=== PATIENT | female | born 1950 | race Caucasian/White ===

== ENCOUNTER 2019-07-08 11:09 | Inpatient (IN) | payer OTHER, SELFPAY ==
[2019-07-08 11:01] VITALS: BP 137/87; PULSE 93; RESP 16; TEMP 36.7; O2SAT 95; BMI 22.2
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
--- NOTE | 2019-07-08 15:11 | XR_ITS ---
WS: [id number] PORTABLE CHEST HISTORY: sob COMPARISON: None available. Hyperexpanded lungs with emphysema. No pneumonia. Normal vasculature. No pleural effusion or pneumoth orax. Cardiac size: Mildly enlarged cardiac silhouette. Mediastinum/Aorta: Mild atherosclerosis aorta. No osseous abnormality seen. XR/XR chest 1V portable [id number] IMPRESSION: 1. Mild emphysema and cardiomegaly. 2. Partially calcified aorta.
[2019-07-08 15:37] LABS: Basophils % 0.4 %; Hematocrit 38.8 % (37.0-47.0); Hemoglobin 12.8 g/dL (11.5-15.3); Lymphocytes # 1.7 10^3/uL (0.8-4.8); Lymphocytes % 23.2 %; Mean Corpuscular Hemoglobin 27.8 pg (28.0-34.0); Mean Corpuscular Volume 84.3 fL (81-99); Mean Platelet Volume 11.5 fL (7.4-10.4); Monocytes # 0.6 10^3/uL (0.2-0.9); Monocytes % 7.9 %; Neutrophils % 54.4 %; Nucleated Red Blood Cells % 0 %; Platelet Count 301 10^3/cmm (130-400); Red Cell Distribution Width 13.2 % (12.1-15.1); White Blood Count 7.4 10^3/uL (4.0-10.0)
[2019-07-08 15:55] LABS: Alanine Aminotransferase < 5 U/L (0-33); Alkaline Phosphatase 142 IU/L (35-105); Anion Gap 15.7 (5-19); Aspartate Amino Transferase 19 U/L (0-32); Blood Urea Nitrogen 34 mg/dL (8-23); Calcium 10.2 mg/Dl (8.8-10.2); Carbon Dioxide 25 mmol/L (22-29); Chloride 102 mmol/L (98-107); Globulin 3.1 g/dL (1.3-4.6); Glomerular Filtration Rate 99.4 mL/min (90-130); Glucose 101 mg/dL (74-106); Potassium 3.7 mmol/L (3.5-5.1); Sodium 139 mmol/L (136-145); Total Bilirubin 0.2 mg/dL (0.15-1.2); Total Protein 7.1 g/dL (6.6-8.7)
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
[2019-07-08 17:08] VITALS: BP 99/68; PULSE 107; RESP 16; O2SAT 96
[2019-07-08 18:51] VITALS: BP 111/81; PULSE 91; RESP 19; O2SAT 96
[2019-07-08] MEDS: sodium chloride 0.9% 1,000 ML 999 ML IV (19:08)
[2019-07-08 19:17] VITALS: BP 114/72; PULSE 91; RESP 20; TEMP 37; O2SAT 96
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
--- NOTE | 2019-07-08 19:40 | ED_ITS ---
HPI - General Adult General: Chief complaint: General Medical, Adult Stated complaint: does not feel safe at home Time Seen by Provider: 07/08/19 11:11 PFSH ED PFSH: Statuses (acute, chronic, etc) shown below reflect problem list status as previously entered and may not be historically accurate Medical History (Updated 07/08/19 @ 17:45 by Jael Dove MD, [facility]) Parkinson disease (Acute) Rheumatoid arthritis (Acute) Social History Smoking and tobacco status: never smoked Course Vital Signs: Vital signs: Vital Signs Temperature 98.6 F 07/08/19 19:17 Pulse Rate 91 07/08/19 19:17 Respiratory Rate 20 H 07/08/19 19:17 Blood Pressure 114/72 07/08/19 19:17 Pulse Oximetry 96 07/08/19 19:17 MDM - General Adult Lab Data: Labs: Lab Results 07/08/19 07/08/19 Range/Units 15:31 15:31 WBC 7.4 (4.0-10.0) 10^3/ uL RBC 4.60 (4.1-5.3) 10^6/u L Hgb 12.8 (11.5-15.3) g/dL Hct 38.8 (37.0-47.0) % MCV 84.3 (81-99) fL MCH 27.8 L (28.0-34.0) pg MCHC 33.0 (30.0-36.0) g/dL RDW 13.2 (12.1-15.1) % Plt Count 301 (130-400) 10^3/c mm MPV 11.5 H (7.4-10.4) fL Neut % (Auto) 54.4 % Lymph % (Auto) 23.2 % [place] % (Auto) 7.9 % Eos % (Auto) 14.0 % Baso % (Auto) 0.4 % Neut # (Auto) 4.0 (1.8-7.7) 10^3/u L Lymph # (Auto) 1.7 (0.8-4.8) 10^3/u L [place] # (Auto) 0.6 (0.2-0.9) 10^3/u L Eos # (Auto) 1.0 H (0.0-0.8) 10^3/u L Baso # (Auto) 0.0 (0.0-0.1) 10^3/u L Nucleated RBC % (a uto) 0 % Nucleated RBCs # 0.0 /100WBC Sodium 139 (136-145) mmol/L Potassium 3.7 (3.5-5.1) mmol/L Chloride 102 (98-107) mmol/L Carbon Dioxide 25 (22-29) mmol/L Anion Gap 15.7 (5-19) BUN 34 H (8-23) mg/dL Creatinine 0.6 (0.5-0.9) mg/dL GFR Calculation 99.4 (90-130) mL/min Glucose 101 (74-106) mg/dL Calcium 10.2 (8.8-10.2) mg/Dl Total Bilirubin 0.2 (0.15-1.2) mg/dL AST 19 (0-32) U/L ALT < 5 (0-33) U/L Alkaline Phosphata se 142 H (35-105) IU/L Total Protein 7.1 (6.6-8.7) g/dL Albumin 4.0 (3.5-5.2) g/dL Globulin 3.1 (1.3-4.6) g/dL Discharge Plan Discharge Patient Disposition: Placed in Observation Admit Provider: Zach Curtis Clinical Impression: Acute dehydration Condition: Stable Referrals: Keagan Chris [Family Provider] - Discharge Diet: Usual diet Discharge Activity: Resume usual activity Discharge Date/Time: 07/08/19 19:36 Coding Level of Care Code ED Pugger Helper for Salud Pickering
[2019-07-08 20:10] VITALS: BP 128/89; PULSE 100; RESP 20; TEMP 36.8; O2SAT 96
[2019-07-08 20:26] VITALS: BP 128/89; PULSE 100; RESP 20; TEMP 37; O2SAT 96
[2019-07-08] MEDS: enoxaparin 40 mg/0.4 mL Syringe SUBCUT (21:41)
[2019-07-08] MEDS: carbidopa-levodopa 25-100mg Tablet 1 EACH PO (21:41)
[2019-07-08] MEDS: sodium chloride 0.9% 1,000 ML 100 ML IV (21:42)
[2019-07-09] VITALS (14 sets, daily range): BP systolic 105–124; BP diastolic 65–78; PULSE 78–93; RESP 16–24; TEMP 36.4–36.7; O2SAT 93–98; BMI 22.7
[2019-07-09 05:54] LABS: Basophils % 0.7 %; Hematocrit 33.5 % (37.0-47.0); Hemoglobin 11.1 g/dL (11.5-15.3); Lymphocytes # 1.5 10^3/uL (0.8-4.8); Lymphocytes % 24.1 %; Mean Corpuscular HGB Conc 33.1 g/dL (30.0-36.0); Mean Corpuscular Hemoglobin 29.4 pg (28.0-34.0); Mean Corpuscular Volume 88.6 fL (81-99); Mean Platelet Volume 12.2 fL (7.4-10.4); Monocytes # 0.6 10^3/uL (0.2-0.9); Monocytes % 9.3 %; Neutrophils % 48.7 %; Nucleated Red Blood Cells % 0 %; Platelet Count 233 10^3/cmm (130-400); Red Blood Count 3.78 10^6/uL (4.1-5.3); Red Cell Distribution Width 13.5 % (12.1-15.1); White Blood Count 6.1 10^3/uL (4.0-10.0)
[2019-07-09] MEDS: buPROPion XL (24 HR) 300 mg Tablet PO (06:14)
[2019-07-09] MEDS: sodium chloride 0.9% 1,000 ML 100 ML IV (06:15)
[2019-07-09 06:21] LABS: Anion Gap 14.2 (5-19); Blood Urea Nitrogen 31 mg/dL (8-23); Calcium 8.7 mg/Dl (8.8-10.2); Carbon Dioxide 23 mmol/L (22-29); Chloride 106 mmol/L (98-107); Glomerular Filtration Rate 99.4 mL/min (90-130); Glucose 85 mg/dL (74-106); Potassium 3.2 mmol/L (3.5-5.1); Sodium 140 mmol/L (136-145)
[2019-07-09 08:17] LABS: Bilirubin Urine 1+ (NEGATIVE); Blood Urine Neg (Negative); Glucose Urine UA Norm (Normal); Ketones Urine 1+ (Negative); Leukocyte Esterase Urine Negative (Negative); Nitrate Urine Negative (Negative); Protein Urine Neg (Negative); Urine Appearance Clear (CLEAR); Urine Color Yellow (Yellow); Urobilinogen Urine Norm (Negative); pH Urine 5 (5-7)
[2019-07-09 08:19] LABS: Mucus Urine 1+
[2019-07-09 08:20] LABS: Add Urine Culture? No; Bacteria Urine 1+; RBC Urine 0-4 /hpf (0-2)
[2019-07-09] MEDS: calcium carbonate 500 mg Chew Tablet 1000 MG PO (10:01)
[2019-07-09] MEDS: montelukast sodium 10 mg Tablet PO (10:02)
[2019-07-09] MEDS: atorvastatin 40 mg Tablet 20 MG PO (10:02)
[2019-07-09] MEDS: pantoprazole DR 40 mg Tablet PO (10:02)
[2019-07-09] MEDS: citalopram 20 mg Tablet 40 MG PO (10:03)
[2019-07-09] MEDS: hydroCHLOROthiazide 25 mg Tablet PO (10:03)
[2019-07-09] MEDS: carbidopa-levodopa 25-100mg Tablet 1 EACH PO (10:04)
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
--- NOTE | 2019-07-09 17:30 | PC.NURSE ---
DISCHARGE SUMMARY PATIENTS DISCHARGE INSTRUCTIONS WERE GIVEN TO RECEIVING NURSE. PATIENT WAS TRANSFERRED TO SNF BY MEDICAL TRANSPORT. IV WAS DISCONTINUED. VITAL SIGNS STABLE AND PATIENT WAS ALERT AND ORIENTED.
== END 2019-07-09 17:15 | disposition skilled nursing facility (03) | DRG 641 ==
LOC: ER 17:45 → MEDSURG 19:06
PROVIDERS: Admitting Provider Family Medicine; Emergency Provider Family Medicine; Family Provider Family Medicine; Visit Provider Family Medicine
DX: E86.0 Dehydration (principal); E46 Unspecified protein-calorie malnutrition; Z68.22 Body mass index [BMI] 22.0-22.9, adult; E78.5 Hyperlipidemia, unspecified; T74.31XA Adult psychological abuse, confirmed, initial encounter; Y07.59 Other non-family member, perpetrator of maltreatment and neglect; G20 Parkinson's disease; I10 Essential (primary) hypertension; E55.9 Vitamin D deficiency, unspecified; J45.909 Unspecified asthma, uncomplicated; K21.9 Gastro-esophageal reflux disease without esophagitis; M06.9 Rheumatoid arthritis, unspecified; R19.7 Diarrhea, unspecified; R53.81 Other malaise
CPT/HCPCS: 36415; 71045; 80048; 80053; 81001; 85025; 94640; 96372; 97161; 97165; 97530; 99282; J1650; J3535; J7030

== ENCOUNTER 2019-07-13 10:05 | Outpatient (RCR) | payer OTHER, MEDICARE, SELFPAY | END 2019-08-05 23:59 | disposition home or self-care (01) | LOC: LAB 10:05 | PROVIDERS: Family Provider Family Medicine; Visit Provider Family Medicine | DX: E43 Unspecified severe protein-calorie malnutrition (principal); E55.9 Vitamin D deficiency, unspecified; E78.5 Hyperlipidemia, unspecified; I10 Essential (primary) hypertension; E87.6 Hypokalemia ==

== ENCOUNTER 2019-10-26 18:05 | Emergency (ER) | payer OTHER, MEDICARE, SELFPAY ==
[2019-10-26 18:09] VITALS: BP 130/79; PULSE 91; RESP 17; TEMP 36.7; O2SAT 95; BMI 22.2
--- NOTE | 2019-10-26 18:12 | XR_ITS ---
WS: [id number] CHEST XRAY TECHNIQUE: Portable chest. CLINICAL INFORMATION: psych COMPARISON: July 08, 2019 FINDINGS: Heart: Cardiomegaly. Aortic calcification. Consider pericardial effusion. Lungs: Moderate chronic emphysematous changes. Probable small left pleural effusion. No focal pneumon ia. Bones: Thoracic scoliosis. XR/XR chest 1V portable [id number] IMPRESSION: 1. Cardiomegaly. Consider pericardial effusion. 2. Probable small left pleural effusion. 3. No focal pneumonia.
--- NOTE | 2019-10-26 18:18 | ED_ITS ---
HPI - Psych General: Chief Complaint: Psychiatric Symptoms Stated Complaint: SI Time Seen by Provider: 10/26/19 18:12 Source: patient and EMS Mode of arrival: EMS Limitations: no limitations History of Present Illness: HPI Narrative: 69-year-old female here from snf in [place]. She states she has been depressed with quarantine and not having any visitors due to the coronavirus. She states she had suicidal thoughts earlier with no plans. She states that she no longer has any of these thoughts and is not wanting to kill herself. She is never tried to kill her self in the past. Associated symptoms: Reports depression Review of Systems Const: Denies: fever, chills, body aches or change in appetite Eyes: Denies: blurry vision or eye discomfort ENMT: Denies: throat pain or dental pain Card: Denies: chest pain Resp: Denies: shortness of breath GI: Denies: abdominal pain, nausea, vomiting or diarrhea : Denies: painful urination Musc: Denies: neck pain or back pain Skin/Breast: Denies: rash Neuro: Denies: headache Psych: Reports: depression Andriy/Lymph: Denies: easy bruising All/Imm: Denies: hives PFSH ED PFSH: Medical History Ankle fracture, left Hypertension Parkinson disease Rheumatoid arthritis Surgical History No significant past surgical history Family History Denies family history of Diabetes CAD (coronary artery disease) Cancer Social History Smoking and tobacco status: never smoked Alcohol intake: never Physical Exam Const: COMMON NORMALS: no apparent distress, oriented x3 and healthy appearing HENMT: COMMON NORMALS: normocephalic and head/scalp atraumatic HEAD & SCALP: normocephalic and atraumatic Eye: COMMON NORMALS: PERRL and EOMs intact bilaterally PUPIL: Yes PERRL Neck/C-Spine: COMMON NORMALS: full ROM and supple Chest: COMMONS NORMALS: inspection of chest normal and palpation of chest normal Resp: COMMON NORMALS: normal respiratory effort, no retractions, no use of accessory muscles and clear to auscultation bilaterally AUSCULTATION: clear to auscultation bilaterally Cardio: COMMON NORMALS: regular rate, regular rhythm and no murmurs RATE: regular rate RHYTHM: regular rhythm GI: COMMON NORMALS: normal to inspection, nondistended, normoactive bowel sounds, soft to palpation, non-tender and no masses PALPATION: Yes soft Extremity: COMMON NORMALS: normal to inspection and full ROM Neuro: COMMON NORMALS: oriented x3, moves all extremities and no focal motor deficits Psych: COMMON NORMALS: mental status grossly normal, thought process normal and cooperative THOUGHT PROCESS: normal thought process Skin: COMMON NORMALS: no rashes or lesions noted and no wounds GENERAL SKIN EXAM: no rashes or lesions noted MDM - Psych MDM Narrative: Medical decision making narrative: Patient presents here with depression. Patient refused any did suicidal ideations here. I had Dr. Matthew of psychiatry come down and evaluate patient and he spoke to her in person. He agrees she is not a threat to harm herself and feels that she is stable for discharge back to the snf. Patient's labs are all normal and will discharge her back to [facility]. Lab Data: Labs: Lab Results 10/26/19 10/26/19 10/26/19 Range/Units 18:20 18:20 18:35 WBC 6.6 (4.0-10.0) 10^3/ uL RBC 4.25 (4.1-5.3) 10^6/u L Hgb 10.6 L (11.5-15.3) g/dL Hct 33.3 L (37.0-47.0) % MCV 78.4 L (81-99) fL MCH 24.9 L (28.0-34.0) pg MCHC 31.8 (30.0-36.0) g/dL RDW 15.9 H (12.1-15.1) % Plt Count 289 (130-400) 10^3/c mm MPV 12.2 H (7.4-10.4) fL Neut % (Auto) 57.0 % Lymph % (Auto) 23.3 % [place] % (Auto) 10.4 % Eos % (Auto) 8.3 % Baso % (Auto) 0.8 % Neut # (Auto) 3.8 (1.8-7.7) 10^3/u L Lymph # (Auto) 1.5 (0.8-4.8) 10^3/u L [place] # (Auto) 0.7 (0.2-0.9) 10^3/u L Eos # (Auto) 0.6 (0.0-0.8) 10^3/u L Baso # (Auto) 0.1 (0.0-0.1) 10^3/u L Nucleated RBC % (a uto) 0 % Nucleated RBCs # 0.0 /100WBC Sodium 138 (136-145) mmol/L Potassium 3.7 (3.5-5.1) mmol/L Chloride 103 (98-107) mmol/L Carbon Dioxide 26 (22-29) mmol/L Anion Gap 12.7 (5-19) BUN 25 H (8-23) mg/dL Creatinine 0.7 (0.5-0.9) mg/dL GFR Calculation 83.2 L (90-130) mL/min Glucose 111 (65-115) mg/dL Calculated Osmolal ity 284 L (285-295) mOsm/k g Calcium 8.6 (8.5-10.5) mg/dL Total Bilirubin 0.2 (0.15-1.2) mg/dL AST 13 (0-32) U/L ALT < 5 (0-33) U/L Alkaline Phosphata se 75 (35-105) IU/L Total Protein 5.8 L (6.6-8.7) g/dL Albumin 3.5 (3.5-5.2) g/dL Globulin 2.3 (1.3-4.6) g/dL Urine Color Yellow (Yellow) Urine Appearance Clear (CLEAR) Urine pH 6.5 (5-7) Ur Specific Gravit y 1.015 (1.005-1.030) Urine Protein Neg (Negative) Urine Glucose (UA) Norm (Normal) Urine Ketones Negative (Negative) Urine Blood Neg (Negative) Urine Nitrate Negative (Negative) Urine Bilirubin Neg (NEGATIVE) Urine Urobilinogen Norm (Negative) mg/dL Ur Leukocyte Karly ase Negative (Negative) Salicylates 0.6 L (3-10) mg/dL Urine Opiates Scre en (Negative) ng/mL Acetaminophen < 5.0 L (10-30) ug/mL Ur Barbiturates Sc reen (Negative) ng/mL Ur Phencyclidine S crn (Negative) ng/mL Ur Amphetamines Sc reen (Negative) ng/mL U Benzodiazepines Scrn (Negative) ng/mL Urine Cocaine Scre en (Negative) ng/mL U Marijuana (THC) Screen (Negative) ng/mL Ethyl Alcohol < 10 (0-10) mg/dL 10/26/19 Range/Units 18:35 WBC (4.0-10.0) 10^3/ uL RBC (4.1-5.3) 10^6/u L Hgb (11.5-15.3) g/dL Hct (37.0-47.0) % MCV (81-99) fL MCH (28.0-34.0) pg MCHC (30.0-36.0) g/dL RDW (12.1-15.1) % Plt Count (130-400) 10^3/c mm MPV (7.4-10.4) fL Neut % (Auto) % Lymph % (Auto) % [place] % (Auto) % Eos % (Auto) % Baso % (Auto) % Neut # (Auto) (1.8-7.7) 10^3/u L Lymph # (Auto) (0.8-4.8) 10^3/u L [place] # (Auto) (0.2-0.9) 10^3/u L Eos # (Auto) (0.0-0.8) 10^3/u L Baso # (Auto) (0.0-0.1) 10^3/u L Nucleated RBC % (a uto) % Nucleated RBCs # /100WBC Sodium (136-145) mmol/L Potassium (3.5-5.1) mmol/L Chloride (98-107) mmol/L Carbon Dioxide (22-29) mmol/L Anion Gap (5-19) BUN (8-23) mg/dL Creatinine (0.5-0.9) mg/dL GFR Calculation (90-130) mL/min Glucose (65-115) mg/dL Calculated Osmolal ity (285-295) mOsm/k g Calcium (8.5-10.5) mg/dL Total Bilirubin (0.15-1.2) mg/dL AST (0-32) U/L ALT (0-33) U/L Alkaline Phosphata se (35-105) IU/L Total Protein (6.6-8.7) g/dL Albumin (3.5-5.2) g/dL Globulin (1.3-4.6) g/dL Urine Color (Yellow) Urine Appearance (CLEAR) Urine pH (5-7) Ur Specific Gravit y (1.005-1.030) Urine Protein (Negative) Urine Glucose (UA) (Normal) Urine Ketones (Negative) Urine Blood (Negative) Urine Nitrate (Negative) Urine Bilirubin (NEGATIVE) Urine Urobilinogen (Negative) mg/dL Ur Leukocyte Karly ase (Negative) Salicylates (3-10) mg/dL Urine Opiates Scre en Negative (Negative) ng/mL Acetaminophen (10-30) ug/mL Ur Barbiturates Sc reen Negative (Negative) ng/mL Ur Phencyclidine S crn Negative (Negative) ng/mL Ur Amphetamines Sc reen Negative (Negative) ng/mL U Benzodiazepines Scrn Negative (Negative) ng/mL Urine Cocaine Scre en Negative (Negative) ng/mL U Marijuana (THC) Screen Negative (Negative) ng/mL Ethyl Alcohol (0-10) mg/dL Imaging Data^: CXR: Attestation: I personally reviewed and interpreted this imaging study as follows: My impression: no acute abnormality Discharge Plan Discharge Patient Disposition: Home, Self-Care Clinical Impression: Depression Qualifiers: Depression Type: unspecified Qualified Code(s): F32.9 - Major depressive disorder, single episode, unspecified Condition: Stable Prescriptions: No Action citalopram [Celexa] 40 mg Tablet 20 mg PO DAILY RF: 0 acetaminophen [Tylenol Arthritis Pain] 650 mg Tablet Extended Release 650 mg PO DAILY PRN (Reason: Pain) RF: 0 montelukast [Singulair] 10 mg Tablet 10 mg PO DAILY RF: 0 carbidopa-levodopa 25-100 mg Tablet 1 tab PO BID RF: 0 cholecalciferol (vitamin D3) [Vitamin D3] 1,000 unit Capsule 1,000 unit PO DAILY RF: 0 bupropion HCl 300 mg Tablet Extended Release 24 Hr 300 mg PO DAILY RF: 0 Combivent Respimat 20-100 mcg/actuation Mist 1 puff INHALATION QID RF: 0 Robaxin-750 500 mg PO BID PRN (Reason: Spasms) RF: 0 pantoprazole [Protonix] 20 mg Tablet,Delayed Release (Dr/Ec) 20 mg PO DAILY RF: 0 ondansetron HCl 4 mg tablet 4 mg PO Q4H PRN (Reason: NAUSEA/VOMITING) RF: 0 alendronate 70 mg Tablet 70 mg PO Q7D RF: 0 Metamucil 3.4 gram/5.4 gram Powder 1 tsp PO BID RF: 0 Discharge Orders: Discharge Order (Routine); Ordered 10/26/19 Ordered By: Hawa Duckworth Referrals: Keagan Chris [Primary Care Provider] - 1-3 days Discharge Diet: Advance as tolerated Discharge Activity: Resume usual activity Patient Instructions: Depression (ED) Coding Level of Care Code ED Spool Cleaner Hand for Salud Fwd Exam Comprehensive
[2019-10-26 18:19] VITALS: PULSE 102; RESP 18; O2SAT 97
[2019-10-26 18:39] LABS: Basophils # 0.1 10^3/uL (0.0-0.1); Basophils % 0.8 %; Eosinophils # 0.6 10^3/uL (0.0-0.8); Eosinophils % 8.3 %; Hematocrit 33.3 % (37.0-47.0); Hemoglobin 10.6 g/dL (11.5-15.3); Lymphocytes # 1.5 10^3/uL (0.8-4.8); Lymphocytes % 23.3 %; Mean Corpuscular HGB Conc 31.8 g/dL (30.0-36.0); Mean Corpuscular Hemoglobin 24.9 pg (28.0-34.0); Mean Corpuscular Volume 78.4 fL (81-99); Mean Platelet Volume 12.2 fL (7.4-10.4); Monocytes # 0.7 10^3/uL (0.2-0.9); Monocytes % 10.4 %; Neutrophils # 3.8 10^3/uL (1.8-7.7); Nucleated Red Blood Cells % 0 %; Platelet Count 289 10^3/cmm (130-400); Red Blood Count 4.25 10^6/uL (4.1-5.3); Red Cell Distribution Width 15.9 % (12.1-15.1); White Blood Count 6.6 10^3/uL (4.0-10.0)
[2019-10-26 18:46] LABS: Add Urine Microscopic? NO
[2019-10-26 18:58] LABS: Bilirubin Urine Neg (NEGATIVE); Blood Urine Neg (Negative); Glucose Urine UA Norm (Normal); Ketones Urine Negative (Negative); Leukocyte Esterase Urine Negative (Negative); Nitrate Urine Negative (Negative); Protein Urine Neg (Negative); Specific Gravity, Urine 1.015 (1.005-1.030); Urine Appearance Clear (CLEAR); Urine Color Yellow (Yellow); Urobilinogen Urine Norm (Negative); pH Urine 6.5 (5-7)
[2019-10-26 18:59] LABS: Amphetamines Screen Urine Negative (Negative); Barbiturates Screen Urine Negative (Negative); Benzodiazepines Screen Urine Negative (Negative); Cocaine Screen Urine Negative (Negative); Opiate Screen Urine Negative (Negative); PCP Screen Urine Negative (Negative); THC Screen Urine Negative (Negative)
[2019-10-26 18:59] LABS: Alanine Aminotransferase < 5 U/L (0-33); Albumin Level 3.5 g/dL (3.5-5.2); Alkaline Phosphatase 75 IU/L (35-105); Anion Gap 12.7 (5-19); Aspartate Amino Transferase 13 U/L (0-32); Blood Urea Nitrogen 25 mg/dL (8-23); Calcium 8.6 mg/dL (8.5-10.5); Carbon Dioxide 26 mmol/L (22-29); Chloride 103 mmol/L (98-107); Globulin 2.3 g/dL (1.3-4.6); Glomerular Filtration Rate 83.2 mL/min (90-130); Glucose 111 mg/dL (65-115); Osmolality Calculated 284 mOsm/kg (285-295); Potassium 3.7 mmol/L (3.5-5.1); Salicylate 0.6 mg/dL (3-10); Sodium 138 mmol/L (136-145); Total Bilirubin 0.2 mg/dL (0.15-1.2); Total Protein 5.8 g/dL (6.6-8.7)
[2019-10-26 19:03] LABS: Acetaminophen < 5.0 ug/mL (10-30); Alcohol Level < 10 mg/dL (0-10)
--- NOTE | 2019-10-26 19:09 | PC.NURSE ---
REPORT RECEIVED FROM MARISOL TURNER AND CARE TRANSFERRED TO MARISOL ACHARYA
--- NOTE | 2019-10-26 19:10 | PC.NURSE ---
HCP IN ROOM
[2019-10-26 19:16] VITALS: BP 123/75; PULSE 104; O2SAT 97
[2019-10-26 19:59] VITALS: BP 126/63; PULSE 87; RESP 16; O2SAT 96
[2019-10-26 20:19] VITALS: BP 121/63; RESP 16
== END 2019-10-26 20:37 | disposition home or self-care (01) ==
PROVIDERS: Emergency Provider Emergency Medicine; Family Provider Family Medicine; PCP Family Medicine
DX: F32.9 Major depressive disorder, single episode, unspecified (principal); I10 Essential (primary) hypertension; G20 Parkinson's disease; M06.9 Rheumatoid arthritis, unspecified; Z79.899 Other long term (current) drug therapy
CPT/HCPCS: 12345; 36415; 71045; 80053; 80306; 80307; 81003; 85025; 99284

== ENCOUNTER 2020-08-13 14:53 | Observation (INO) | payer OTHER, MEDICARE, SELFPAY ==
[2020-08-13] VITALS (12 sets, daily range): BP systolic 94–136; BP diastolic 54–90; PULSE 100–116; RESP 16–122; TEMP 36.5–36.6; O2SAT 93–98; BMI 16.9
--- NOTE | 2020-08-13 15:07 | W.ED.GIBLEED ---
HPI - GI Bleed General: Chief complaint: GI Bleed Stated complaint: GI BLEED Time Seen by Provider: 08/13/20 14:54 Source: patient and EMS Mode of arrival: EMS Limitations: no limitations History of Present Illness: HPI Narrative: 70-year-old female who is here from [facility]. Patient has had off-and-on bloody sinuses for a month. Today she had one episode of coffee-ground emesis and they were concerned. She said no blood in her stools. She denies any vomiting over the last hour denies any abdominal pain. Patient's blood pressure here is normal. She denies any worsening improving factors. Associated symptoms: Reports vomiting; Denies abdominal pain, chills, easy bruising, fever(s), headache(s), nausea or rash Review of Systems Const: Denies: fever(s), chills, body aches or change in appetite Eyes: Denies: blurry vision or eye discomfort ENMT: Denies: throat pain or dental pain Card: Denies: chest pain Resp: Denies: dyspnea GI: Reports: vomiting; Denies: abdominal pain, nausea or diarrhea : Denies: dysuria Musc: Denies: neck pain or back pain Skin/Breast: Denies: rash Neuro: Denies: headache(s) Psych: Denies: depression Andriy/Lymph: Denies: easy bruising All/Imm: Denies: urticaria PFSH ED PFSH: Medical History (Updated 08/13/20 @ 16:51 by Hawa Duckworth MD) Ankle fracture, left Hypertension Parkinson disease Rheumatoid arthritis Surgical History No significant past surgical history Family History Denies family history of Diabetes CAD (coronary artery disease) Cancer Social History Smoking and tobacco status: never smoked Alcohol intake: never Physical Exam Const: COMMON NORMALS: no acute distress, patient oriented x3 and healthy appearing HENMT: COMMON NORMALS: normocephalic and atraumatic HEAD & SCALP: normocephalic and atraumatic Eye: COMMON NORMALS: Equal, round and reactive pupils present and EOMs intact bilaterally PUPIL: Yes Equal, round and reactive pupils present Neck/C-Spine: COMMON NORMALS: full ROM and supple Chest: COMMONS NORMALS: normal inspection of the chest and normal palpation of entire chest wall Resp: COMMON NORMALS: normal respiratory effort, No retractions, No use of accessory muscles and clear to auscultation bilaterally AUSCULTATION: clear to auscultation bilaterally Cardio: COMMON NORMALS: regular rate, regular rhythm and No murmurs present (Cardio) RATE: regular rate RHYTHM: regular rhythm GI: COMMON NORMALS: Normal to inspection, nondistended, normoactive bowel sounds present, Soft to palpation, non-tender and no masses PALPATION: Yes Soft to palpation RECTAL EXAM: normal sphincter tone and heme negative stool Extremity: COMMON NORMALS: normal to inspection and full ROM Neuro: COMMON NORMALS: patient oriented x3, moves all extremities and no focal motor deficits Psych: COMMON NORMALS: mental status grossly normal, Normal thought process present and cooperative THOUGHT PROCESS: Normal thought process present Skin: COMMON NORMALS: no rashes or lesions noted and no wounds GENERAL SKIN EXAM: no rashes or lesions noted Course Vital Signs: Vital signs: Vital Signs Temperature 97.7 F 08/13/20 14:57 Pulse Rate 107 H 08/13/20 16:20 Respiratory Rate 17 08/13/20 16:20 Blood Pressure 118/85 08/13/20 16:20 Pulse Oximetry 95 08/13/20 16:20 MDM - GI Bleed MDM Narrative: Medical decision making narrative: Patient presents here with vomiting blood this been going on for over a month. She is well-appearing here and rectal exam showed no blood in her stool and her hemoglobin is stable. Patient is requesting discharge I feel she is stable for discharge back to custodial. She is to continue Protonix and Zofran and she is to follow-up with surgery outpatient. She is return if she has any worsening of her hematemesis. Lab Data: Labs: Lab Results 08/13/20 08/13/20 08/13/20 Range/Units 15:37 15:37 15:37 WBC 11.4 H (4.0-10.0) 10^3/ uL RBC 4.61 (4.1-5.3) 10^6/u L Hgb 10.7 L (11.5-15.3) g/dL Hct 34.9 L (37.0-47.0) % MCV 75.7 L (81-99) fL MCH 23.2 L (28.0-34.0) pg MCHC 30.7 (30.0-36.0) g/dL RDW 16.4 H (12.1-15.1) % Plt Count 528 H (130-400) 10^3/c mm MPV 10.7 H (7.4-10.4) fL Neut % (Auto) 80.2 % Lymph % (Auto) 9.9 % [place] % (Auto) 7.5 % Eos % (Auto) 1.8 % Baso % (Auto) 0.4 % Neut # (Auto) 9.17 H (1.8-7.7) 10^3/u L Lymph # (Auto) 1.1 (0.8-4.8) 10^3/u L [place] # (Auto) 0.9 (0.2-0.9) 10^3/u L Eos # (Auto) 0.2 (0.0-0.8) 10^3/u L Baso # (Auto) 0.1 (0.0-0.1) 10^3/u L Nucleated RBC % (a uto) 0 % Nucleated RBCs # 0.0 /100WBC PT 15.20 H (12.1-14.9) SECO NDS INR 1.16 (0.8-1.2) Sodium Cancelled Potassium Cancelled Chloride Cancelled Carbon Dioxide Cancelled Anion Gap Cancelled BUN Cancelled Creatinine Cancelled GFR Calculation Cancelled Glucose Cancelled Calculated Osmolal ity Cancelled Calcium Cancelled Total Bilirubin Cancelled AST Cancelled ALT Cancelled Alkaline Phosphata se Cancelled Total Protein Cancelled Albumin Cancelled Globulin Cancelled 08/13/20 Range/Units 16:00 WBC (4.0-10.0) 10^3/ uL RBC (4.1-5.3) 10^6/u L Hgb (11.5-15.3) g/dL Hct (37.0-47.0) % MCV (81-99) fL MCH (28.0-34.0) pg MCHC (30.0-36.0) g/dL RDW (12.1-15.1) % Plt Count (130-400) 10^3/c mm MPV (7.4-10.4) fL Neut % (Auto) % Lymph % (Auto) % [place] % (Auto) % Eos % (Auto) % Baso % (Auto) % Neut # (Auto) (1.8-7.7) 10^3/u L Lymph # (Auto) (0.8-4.8) 10^3/u L [place] # (Auto) (0.2-0.9) 10^3/u L Eos # (Auto) (0.0-0.8) 10^3/u L Baso # (Auto) (0.0-0.1) 10^3/u L Nucleated RBC % (a uto) % Nucleated RBCs # /100WBC PT (12.1-14.9) SECO NDS INR (0.8-1.2) Sodium 138 Potassium 3.4 L Chloride 108 H Carbon Dioxide 22 Anion Gap 11.4 BUN 33 H Creatinine 0.6 GFR Calculation 99.1 Glucose 132 H Calculated Osmolal ity 295 Calcium 7.3 L Total Bilirubin 0.2 AST 8 ALT < 5 Alkaline Phosphata se 51 Total Protein 5.0 L Albumin 2.8 L Globulin 2.2 Discharge Plan Discharge Patient Disposition: Home Clinical Impression: Hematemesis Qualifiers: Nausea presence: with nausea Qualified Code(s): K92.0 - Hematemesis Condition: Stable Prescriptions: New ondansetron 4 mg tablet,disintegrating 4 mg PO Q6H PRN (Reason: nausea and vomiting) Qty: 14 RF: 0 No Action citalopram [Celexa] 40 mg Tablet 20 mg PO DAILY@0800 RF: 0 acetaminophen [Tylenol Arthritis Pain] 650 mg Tablet Extended Release 650 mg PO DAILY PRN (Reason: Pain) RF: 0 montelukast [Singulair] 10 mg Tablet 10 mg PO DAILY@1999 RF: 0 carbidopa-levodopa 25-100 mg Tablet 1 tab PO BID@ RF: 0 cholecalciferol (vitamin D3) [Vitamin D3] 1,000 unit Capsule 1,000 unit PO DAILY@08 RF: 0 Combivent Respimat 20-100 mcg/actuation Mist 1 puff INHALATION QID RF: 0 Robaxin-750 500 mg PO BID@ RF: 0 ondansetron HCl 4 mg tablet 4 mg PO Q4H PRN (Reason: NAUSEA/VOMITING) RF: 0 alendronate 70 mg Tablet 70 mg PO Q7D RF: 0 ipratropium-albuterol 0.5 mg-3 mg(2.5 mg base)/3 mL Solution For Nebulization 3 ml INHALATION TID@,, RF: 0 albuterol sulfate 2.5 mg /3 mL (0.083 %) Solution For Nebulization 2.5 mg INHALATION Q4H PRN (Reason: Shortness Of Breath) RF: 0 divalproex 250 mg Tablet,Delayed Release (Dr/Ec) 250 mg PO BID@, RF: 0 prednisone 20 mg Tablet 40 mg PO DAILY RF: 0 Senna-S 8.6-50 mg Tablet 1 tab-cap PO BID PRN (Reason: Constipation) RF: 0 tramadol 50 mg Tablet 50 mg PO Q4H PRN (Reason: Pain) RF: 0 pantoprazole [Protonix] 20 mg Tablet,Delayed Release (Dr/Ec) 40 mg PO BID@, RF: 0 Milk of Magnesia 400 mg/5 mL Suspension 30 ml PO DAILY PRN (Reason: Constipation) RF: 0 bisacodyl 10 mg Suppository 10 mg AL DAILY PRN (Reason: Constipation) RF: 0 Enema Disposable 19-7 gram/118 mL Enema 118 ml AL DAILY PRN (Reason: Constipation) RF: 0 polyethylene glycol 3350 [Miralax] 17 gram/dose Powder 17 g PO DAILY@08 RF: 0 fluticasone propionate 50 mcg/actuation [place],Suspension 1 spray INTRANASAL BID PRN (Reason: Nasal Congestion) RF: 0 bupropion HCl 150 mg Tablet Extended Release 24 Hr 150 mg PO DAILY@0800 RF: 0 TwoCal HN 0.08-2 gram-kcal/mL Liquid 30 ea PO TID@,, RF: 0 Eliquis 2.5 mg Tablet 2.5 mg PO BID@ RF: 0 Mucinex 600 mg Tablet Extended Release 12hr 600 mg PO Q12H PRN (Reason: Nasal Congestion) RF: 0 Discharge Orders: Discharge ED (Routine); Ordered 08/13/20 Ordered By: Hawa Duckworth Referrals: Keagan Chris [Primary Care Provider] - Discharge Diet: Advance as tolerated Discharge Activity: Resume usual activity Patient Instructions: Acute Nausea and Vomiting (ED) Coding Level of Care Code 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
[2020-08-13] MEDS: sodium chloride 0.9% 1,000 ML 999 ML IV (15:30)
[2020-08-13 15:46] LABS: Basophils # 0.1 10^3/uL (0.0-0.1); Basophils % 0.4 %; Eosinophils # 0.2 10^3/uL (0.0-0.8); Eosinophils % 1.8 %; Hematocrit 34.9 % (37.0-47.0); Hemoglobin 10.7 g/dL (11.5-15.3); Lymphocytes # 1.1 10^3/uL (0.8-4.8); Lymphocytes % 9.9 %; Mean Corpuscular HGB Conc 30.7 g/dL (30.0-36.0); Mean Corpuscular Hemoglobin 23.2 pg (28.0-34.0); Mean Corpuscular Volume 75.7 fL (81-99); Mean Platelet Volume 10.7 fL (7.4-10.4); Monocytes # 0.9 10^3/uL (0.2-0.9); Monocytes % 7.5 %; Neutrophils # 9.17 10^3/uL (1.8-7.7); Neutrophils % 80.2 %; Nucleated Red Blood Cells % 0 %; Platelet Count 528 10^3/cmm (130-400); Red Blood Count 4.61 10^6/uL (4.1-5.3); Red Cell Distribution Width 16.4 % (12.1-15.1); White Blood Count 11.4 10^3/uL (4.0-10.0)
[2020-08-13 15:55] LABS: INR 1.16 (0.8-1.2)
[2020-08-13 16:36] LABS: Alanine Aminotransferase < 5 U/L (0-33); Albumin Level 2.8 g/dL (3.5-5.2); Alkaline Phosphatase 51 IU/L (35-105); Anion Gap 11.4 (5-19); Aspartate Amino Transferase 8 U/L (0-32); Blood Urea Nitrogen 33 mg/dL (8-23); Calcium 7.3 mg/dL (8.5-10.5); Carbon Dioxide 22 mmol/L (22-29); Chloride 108 mmol/L (98-107); Globulin 2.2 g/dL (1.3-4.6); Glomerular Filtration Rate 99.1 mL/min (90-130); Glucose 132 mg/dL (65-115); Osmolality Calculated 295 mOsm/kg (285-295); Potassium 3.4 mmol/L (3.5-5.1); Sodium 138 mmol/L (136-145); Total Bilirubin 0.2 mg/dL (0.15-1.2)
--- NOTE | 2020-08-13 18:55 | PC.NURSE ---
patient report recieved from SHELTON DAMON and care transferred to MARISOL Amato
--- NOTE | 2020-08-13 19:21 | PC.NURSE ---
repositioned patient in bed for comfort
--- NOTE | 2020-08-13 20:14 | CTR_ITS ---
PROCEDURE INFORMATION: Exam: CT Abdomen And Pelvis With Contrast Exam date and time: 08/13/2020 8:16 PM Age: 70 years old Clinical indication: Nausea and vomiting; Additional info: Gi bleeding TECHNIQUE: Imaging protocol: Computed tomography of the abdomen and pelvis with contrast. Radiation optimization: All CT scans at this facility use at least one of these dose optimization techniques: automated exposure control; mA and/or kV adjustment per patient size (includes targeted exams where dose is matched to clinical indication); or iterative reconstruction. Contrast material: OMNI 300; Contrast volume: 75 ml; Contrast route: INTRAVENOUS (IV); COMPARISON: No relevant prior studies available. RADIATION DOSE METRICS: Total DLP (mGy-cm): 491.82 FINDINGS: Lungs: Included lung bases are clear. Liver: Normal. No mass. Gallbladder and bile ducts: Cholelithiasis. No inflammatory gallbladder thickening. Nondilated biliary system. Pancreas: Atrophic, fatty replaced pancreas without lesion. Spleen: Normal. No splenomegaly. Adrenal glands: Normal. No mass. Kidneys and ureters: Normal. No hydronephrosis. 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 Portion of the colon within the hernia sac as well. No focal inflammatory changes of bowel loops or abdominal mesentery. Large fecal volume. No focal bowel mass identified but assessment limited. Negative for bowel pneumatosis. Appendix: No evidence of appendicitis. Intraperitoneal space: No intraperitoneal fluid collection. Negative for pneumoperitoneum. Vasculature: Mild atherosclerosis. No aneurysm. No arterial occlusion. Lymph nodes: Unremarkable. No enlarged lymph nodes. Urinary bladder: Unremarkable as visualized. Reproductive: Unremarkable as visualized. Bones/joints: A few small sclerotic foci in the pelvic bones are noted and nonspecific. No acute pathologic fractures although there is mild concavity of the superior vertebral endplate of L5 which is age indeterminate. Symmetric, moderate severity bilateral hip joint space loss. Soft tissues: No active abdominopelvic bleeding is identified. No paraspinal soft tissue hematoma. Other findings: Osteoporosis. CT/CT abdomen pelvis w con* [id number] IMPRESSION: 1. No acute pathology within abdomen or pelvis identified. 2. No active abdominopelvic bleeding observed. 3. 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 4. Incidental cholelithiasis. Radiation Dose CTDIVOL = (mGy): DLP = 491.82 (mGy-cm)
[2020-08-13] MEDS: ondansetron 2 mg/ML SDV 2 mL 4 MG IVP (20:15)
[2020-08-13] MEDS: ipratropium-albuterol 3 mL Neb INHALATION (20:37)
[2020-08-13] MEDS: pantoprazole 40 mg SDV 80 MG IVP (20:38)
[2020-08-13] MEDS: morphine 4 mg/mL SDV 1 mL IVP (20:41)
--- NOTE | 2020-08-13 20:49 | PC.NURSE ---
patient readjusted in bed with second nurse assist for comfort. patient given extra pillows to keep straight in bed.
[2020-08-13] MEDS: iohexol 300 mg/mL 100 mL Btl IV (20:59)
[2020-08-13 21:53] LABS: SARS Covid-2 Antigen Negative (Negative)
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
[2020-08-13] MEDS: sodium chlor 0.9% + KCl 20 mEq 20 MEQ/1,000 ML BAG 100 MEQ IV (23:46)
[2020-08-14] VITALS (10 sets, daily range): BP systolic 99–118; BP diastolic 66–76; PULSE 100–115; RESP 17–20; TEMP 36.3–37; O2SAT 90–95
[2020-08-14 02:41] LABS: Basophils # 0.1 10^3/uL (0.0-0.1); Basophils % 0.6 %; Eosinophils # 0.5 10^3/uL (0.0-0.8); Eosinophils % 5.2 %; Hematocrit 30.2 % (37.0-47.0); Hemoglobin 9.3 g/dL (11.5-15.3); Lymphocytes # 1.3 10^3/uL (0.8-4.8); Lymphocytes % 13.4 %; Mean Corpuscular HGB Conc 30.8 g/dL (30.0-36.0); Mean Corpuscular Hemoglobin 23.2 pg (28.0-34.0); Mean Corpuscular Volume 75.3 fL (81-99); Mean Platelet Volume 11.2 fL (7.4-10.4); Monocytes # 0.9 10^3/uL (0.2-0.9); Monocytes % 8.6 %; Neutrophils % 71.9 %; Nucleated Red Blood Cells % 0 %; Platelet Count 477 10^3/cmm (130-400); Red Blood Count 4.01 10^6/uL (4.1-5.3); Red Cell Distribution Width 15.2 % (12.1-15.1)
[2020-08-14 03:01] LABS: Anion Gap 11.9 (5-19); Blood Urea Nitrogen 34 mg/dL (8-23); Calcium 7.4 mg/dL (8.5-10.5); Carbon Dioxide 22 mmol/L (22-29); Chloride 110 mmol/L (98-107); Glomerular Filtration Rate 122.3 mL/min (90-130); Glucose 101 mg/dL (65-115); Magnesium 1.9 mg/dL (1.7-2.3); Osmolality Calculated 298 mOsm/kg (285-295); Phosphorus 2.9 mg/dL (2.5-4.5); Potassium 3.9 mmol/L (3.5-5.1); Sodium 140 mmol/L (136-145)
[2020-08-14 03:06] LABS: Iron 8 ug/dL (37-145); Percent Saturation 3.4 % (20-50); Total Iron Binding Capacity 233 mcg/dl; Unsaturated Iron Binding 225 ug/dL (112-347)
[2020-08-14 03:13] LABS: Valproic Acid Level 12.6 ug/mL (50-100)
[2020-08-14 07:53] LABS: Add Urine Microscopic? NO
--- NOTE | 2020-08-14 08:02 | XRR_ITS ---
PROCEDURE INFORMATION: Exam: XR Chest, 1 View Exam date and time: 08/14/2020 8:25 AM Age: 70 years old Clinical indication: Cough; Additional info: R/O aspiration TECHNIQUE: Imaging protocol: XR of the chest Views: 1 view. COMPARISON: CR XR chest 1V portable [id number] 10/26/2019 6:19 PM FINDINGS: Lungs: A mass projects in the left base which is consistent with the large hiatal hernia that was seen on recent CT scan. There is mild atelectasis in the left lung. The right lung is clear. Pleural spaces: Unremarkable. No pleural effusion. No pneumothorax. Heart/Mediastinum: The heart size is probably normal for the AP projection. There is calcification of the aorta. Bones/joints: Unremarkable. XR/XR chest 1V portable [id number] IMPRESSION: 1. Large hiatal hernia. 2. Mild left perihilar atelectasis. 3. No other acute abnormality.
[2020-08-14 08:27] LABS: Bilirubin Urine 1+ (Negative); Blood Urine Neg (Negative); Glucose Urine UA Norm (Normal); Ketones Urine 2+ (Negative); Leukocyte Esterase Urine Negative (Negative); Nitrate Urine Negative (Negative); Protein Urine Neg (Negative); Urine Appearance Clear (CLEAR); Urine Color Yellow (Yellow); Urobilinogen Urine Norm (Negative); pH Urine 5 (5-7)
[2020-08-14] MEDS: ipratropium-albuterol 3 mL Neb INHALATION ×2 (09:12→14:19)
--- NOTE | 2020-08-14 09:58 | PC.CHAP ---
Pastoral Care Encounter/Spiritual Assessment Type of Contact [] Declined sweatband shaper visit [] Patient/Family/Request visit [] Outpatient visit [] Follow-up visit [] Physician referral [] Code/Alert [x] Routine visit [] Staff referral [] Actively dying [] Patient sleeping [] Family support [] [] Out of room [] Palliative care [] [] Receiving care in room [] Pre-surgical visit [] Trauma [] Long length of stay [] ICU visit [] Other: Relational/Emotional Strength [x] Patient feels connected with others/family/visitors/staff [] Distress [] Loneliness/isolation [] Abandonment Spirituality of Patient [x] Person of Martina [x] Attends Baptism of their Martina [] Believes in Prayer [] Reads Bible or Religion materials [] There are Spiritual issues to be addressed Registrar Assistant Interventions [x] Prayer [x] Active listening [] Non-anxious presence [] Spiritual/emotional support [] Crisis/trauma care [] Spiritual counseling [] Bereavement support [] Provided bereavement packet [] Provided Bible/devotional materials [] Provided toy/stuffed animal, coloring book to patient or family member [] Provided Communion [] Anointing/[place] [] Salvation [x] Completed spiritual assessment [] Other: Impact on Illness or Injury [] Angry [] Fearful [] Anxious [] Often cries [] Exhaustion [] Unable to work [] Unable to attend religious [] Unable to walk/stand [] Unable to read [] Unable to drive [] Unable to eat/drink [] Unable to sleep [] Unable to be with family [] Patient intubated [] Other: Summary Time spent with patient 10 min
--- NOTE | 2020-08-14 10:00 | PC.NURSE ---
Splicer Apprentice received phone call from patient's . requested update on patient. It was explained to the that patient is refusing treatment at this time and wants to return to the assisted. seemed upset that there was nothing that he could do about this situation. I explained that the patient is oriented and a sound mind so she was capable of making decisions on her own. voiced understanding.
[2020-08-14 10:38] LABS: Hematocrit 28.2 % (37.0-47.0); Hemoglobin 8.8 g/dL (11.5-15.3)
--- NOTE | 2020-08-14 11:41 | PM.DCS ---
Discharge Providers Date of Admission: 08/13/20 20:23 Date of Discharge: August 14, 2020 Attending Provider at Admission: Tamara Chanel MD Attending Provider at Discharge: Milton Hebert MD Primary Care Provider: Keagan Chris Diagnoses at Discharge Discharge Diagnosis (1) Hematemesis: Status: Acute Qualifiers: Nausea presence: with nausea Qualified Code(s): K92.0 - Hematemesis (2) Large hiatal hernia: Status: Acute (3) Microcytic hypochromic anemia: Status: Acute (4) History of DVT (deep vein thrombosis): Status: Chronic Permanent problem details: left lower extremity, last fall prior to COVID diagnosis, on eliquis (5) Osteoporosis: Status: Chronic Qualifiers: Osteoporosis type: unspecified Presence of current pathological fracture: without current pathological fracture Qualified Code(s): M81.0 - Age-related osteoporosis without current pathological fracture (6) Asthma: Status: Chronic Qualifiers: Asthma complication type: unspecified Asthma persistence: unspecified Asthma severity: unspecified severity Qualified Code(s): J45.909 - Unspecified asthma, uncomplicated Reason for Visit Reason for Visit: GI BLEED Hospital Course Hospital Course Jamie Matthew, 70-year-old female coming in from [facility] with past medical history of hyperlipidemia, hypertension, Parkinson's, GERD, dementia, recent history of COVID-19 pneumonia in April 2020 with most recent negative on July 2020, DVT in left lower extremity on Eliquis was sent in from the care home for reported (vomiting blood) for last 1 month. She does state that she has not felt like she could eat very much for some time. She attributes a lot of the problems to difficulty breathing but does not feel like her inhalers have been working. Her breathing will get worse and then she starts feeling nauseated and she subsequently vomits. Does not sound like there has been bright red blood though likely coffee grounds have been present. She says she was sent to the emergency room today because she was not able to keep anything down. Denies any fever. Has never had similar symptoms before. Does not take anything for her stomach regularly. She was found to have DVT in the left lower extremity last fall and is on Eliquis. She is also on alendronate for osteoporosis. Denies any NSAID use. Medication list from facility does show prednisone. She denies regular use of prednisone and sounds like she is on it intermittently primarily for breathing occasionally for arthritis. She has a diagnosis of rheumatoid arthritis. She uses a wheelchair and really nonambulatory at her current baseline. In the emergency room her hemoglobin was 10.7 fully higher than recent values taken outpatient in the last few months. She was monitored for several hours and was close to being discharged back to facility when she had an episode of vomiting that was noted to have significant coffee-ground appearance. 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 Patient was kept n.p.o. and started on PPIs. During hospitalization patient did not have any further coffee-ground emesis though her hemoglobin with IV fluids trended to 8.8. Further modalities of treatment including EGD, possible pull-through stomach surgery was discussed with the patient in detail. Patient continued to refuse any modality of treatment including EGD. Patient states she has a poor baseline functional status with her being unable to sit up as well because of severe spasticity, living in chronic pain mostly lying down in bed, unable to enjoy her life because of all the above she would not want herself to go through any more pain and would not want any further treatment. It is also discussed with her that unfortunately she does not take any further treatment she is at high risk of developing GI bleed which could even lead to . Patient verbalized understanding and states she still does not want any treatment. Case was further discussed with Dr. Nolen from surgery who recommended patient to be discharged on oral PPIs with plan to hold off on anticoagulation for next 2 weeks and then to reintroduce tentatively. Patient's decision of no further treatment was also discussed with her spouse Mr. Lopez over the phone. Given the above goals of care discussion patient also changed her CODE STATUS to DNR/DNI. She states she does not wish to be brought back to the hospital, does not want any kind of chest compressions or put on mechanical ventilator if needed to prolong her life. She requested to be conveyed to the care home facility to be given less spicy food. She is been discharged in hemodynamically stable condition, at AAOx3 mental status with advised to take GI soft nonspicy meals with Ensure with [place] for pain medications as needed as before. The above was discussed in detail with patient's outpatient primary care provider Dr. Mathis as well. Physical Exam Const: COMMON NORMALS: patient oriented x3; negative for well nourished EXAM LIMITATIONS: no altered mental status and no physical limitations GENERAL APPEARANCE: cooperative NUTRITIONAL APPEARANCE: cachectic ORIENTATION/CONSCIOUSNESS: Yes awake, Yes oriented to person, Yes oriented to place and Yes oriented to time HENMT: OTHER: Mild bitemporal wasting and sunken eyes but otherwise normocephalic, face is symmetric. Very dry mucous membranes. No gross blood is noted. Eye: OTHER: Pupils are reactive bilaterally Neck/C-Spine: OTHER: Neck is supple Resp: OTHER: No rales rhonchi or wheezes noted, breath sounds are decreased on the left compared to the right, no accessory muscle use noted, lying down on the right side Cardio: OTHER: Regular rate and rhythm, no murmurs noted, dorsalis pedis pulses equal bilaterally GI: OTHER: Abdomen soft, nontender, nondistended, normoactive bowel sounds are noted : OTHER: Normal external genitalia Extremity: NARRATIVE EXTREMITY EXAM: Contractures noted at left wrist and both ankles, left more so than right. A few Heberden's and Violetta's nodes appreciated, no acute synovitis noted in either hand. Neuro: COMMON NORMALS: patient oriented x3 SENSORIUM/ORIENTATION: Yes oriented to person, Yes oriented to place and Yes oriented to time OTHER: Face symmetric, speech clear, can move all extremities although range of motion is decreased distally except at the right hand due to contractures. Nonweightbearing. Psych: OTHER: Normal affect Skin: OTHER: Skin is dry, pale. No petechiae or large-volume ecchymoses noted. Some erythema noted on the lateral aspect of the left ankle present on admission. Discharge Data Data Completed and Pending: Completed Studies During Hospitalization Category Date Time Status CT abdomen pelvis w con* [id number] Urge nt Cat Scan 08/13/20 20:14 Completed XR chest 1V sammie ble [id number] Routine Exams 08/14/20 08:02 Completed Pending at discharge Category Date Time Status Hemoglobin and He matocrit Q8H Lab 08/14/20 17:35 Ordered Hemoglobin and He matocrit Q8H Lab 08/15/20 01:35 Ordered Hemoglobin and He matocrit Q8H Lab 08/15/20 09:35 Ordered Labs from last 24 hours 02/03/2608/14/20 08/14/20 10:25 06:40 01:57 WBC RBC Hgb 8.8 L Hct 28.2 L MCV MCH MCHC RDW Plt Count MPV Neut % (Auto) Lymph % (Auto) Elliott % (Auto) Eos % (Auto) Baso % (Auto) Neut # (Auto) Lymph # (Auto) Elliott # (Auto) Eos # (Auto) Baso # (Auto) Nucleated RBC % (a uto) Nucleated RBCs # PT INR Sodium Potassium Chloride Carbon Dioxide Anion Gap BUN Creatinine GFR Calculation Glucose Calculated Osmolal ity Calcium Phosphorus Magnesium Iron TIBC % Saturation Unsat Iron Binding Total Bilirubin AST ALT Alkaline Phosphata se Total Protein Albumin Globulin Urine Color Yellow Urine Appearance Clear Urine pH 5 Ur Specific Gravit y 1.010 Urine Protein Neg Urine Glucose (UA) Norm Urine Ketones 2+ H Urine Blood Neg Urine Nitrate Negative Urine Bilirubin 1+ H Urine Urobilinogen Norm Ur Leukocyte Karly ase Negative Valproic Acid 12.6 L SARS-CoV-2 Ag (Rap id) 08/14/20 08/14/20 08/14/20 01:57 01:57 01:57 WBC 10.0 RBC 4.01 L Hgb 9.3 L Hct 30.2 L MCV 75.3 L MCH 23.2 L MCHC 30.8 RDW 15.2 H Plt Count 477 H MPV 11.2 H Neut % (Auto) 71.9 Lymph % (Auto) 13.4 Elliott % (Auto) 8.6 Eos % (Auto) 5.2 Baso % (Auto) 0.6 Neut # (Auto) 7.20 Lymph # (Auto) 1.3 Elliott # (Auto) 0.9 Eos # (Auto) 0.5 Baso # (Auto) 0.1 Nucleated RBC % (a uto) 0 Nucleated RBCs # 0.0 PT INR Sodium 140 Potassium 3.9 Chloride 110 H Carbon Dioxide 22 Anion Gap 11.9 BUN 34 H Creatinine 0.5 GFR Calculation 122.3 Glucose 101 Calculated Osmolal ity 298 H Calcium 7.4 L Phosphorus 2.9 Magnesium 1.9 Iron 8 L TIBC 233 % Saturation 3.4 L Unsat Iron Binding 225 Total Bilirubin AST ALT Alkaline Phosphata se Total Protein Albumin Globulin Urine Color Urine Appearance Urine pH Ur Specific Gravit y Urine Protein Urine Glucose (UA) Urine Ketones Urine Blood Urine Nitrate Urine Bilirubin Urine Urobilinogen Ur Leukocyte Karly ase Valproic Acid SARS-CoV-2 Ag (Rap id) 08/13/20 08/13/20 08/13/20 21:21 16:00 15:37 WBC RBC Hgb Hct MCV MCH MCHC RDW Plt Count MPV Neut % (Auto) Lymph % (Auto) Elliott % (Auto) Eos % (Auto) Baso % (Auto) Neut # (Auto) Lymph # (Auto) Elliott # (Auto) Eos # (Auto) Baso # (Auto) Nucleated RBC % (a uto) Nucleated RBCs # PT INR Sodium 138 Cancelled Potassium 3.4 L Cancelled Chloride 108 H Cancelled Carbon Dioxide 22 Cancelled Anion Gap 11.4 Cancelled BUN 33 H Cancelled Creatinine 0.6 Cancelled GFR Calculation 99.1 Cancelled Glucose 132 H Cancelled Calculated Osmolal ity 295 Cancelled Calcium 7.3 L Cancelled Phosphorus Magnesium Iron TIBC % Saturation Unsat Iron Binding Total Bilirubin 0.2 Cancelled AST 8 Cancelled ALT < 5 Cancelled Alkaline Phosphata se 51 Cancelled Total Protein 5.0 L Cancelled Albumin 2.8 L Cancelled Globulin 2.2 Cancelled Urine Color Urine Appearance Urine pH Ur Specific Gravit y Urine Protein Urine Glucose (UA) Urine Ketones Urine Blood Urine Nitrate Urine Bilirubin Urine Urobilinogen Ur Leukocyte Karly ase Valproic Acid SARS-CoV-2 Ag (Rap id) Negative 08/13/20 08/13/20 15:37 15:37 WBC 11.4 H RBC 4.61 Hgb 10.7 L Hct 34.9 L MCV 75.7 L MCH 23.2 L MCHC 30.7 RDW 16.4 H Plt Count 528 H MPV 10.7 H Neut % (Auto) 80.2 Lymph % (Auto) 9.9 Elliott % (Auto) 7.5 Eos % (Auto) 1.8 Baso % (Auto) 0.4 Neut # (Auto) 9.17 H Lymph # (Auto) 1.1 Elliott # (Auto) 0.9 Eos # (Auto) 0.2 Baso # (Auto) 0.1 Nucleated RBC % (a uto) 0 Nucleated RBCs # 0.0 PT 15.20 H INR 1.16 Sodium Potassium Chloride Carbon Dioxide Anion Gap BUN Creatinine GFR Calculation Glucose Calculated Osmolal ity Calcium Phosphorus Magnesium Iron TIBC % Saturation Unsat Iron Binding Total Bilirubin AST ALT Alkaline Phosphata se Total Protein Albumin Globulin Urine Color Urine Appearance Urine pH Ur Specific Gravit y Urine Protein Urine Glucose (UA) Urine Ketones Urine Blood Urine Nitrate Urine Bilirubin Urine Urobilinogen Ur Leukocyte Karly ase Valproic Acid SARS-CoV-2 Ag (Rap id) Vitals: Last Vital Signs Temp 98.6 F 08/14/20 08:00 Pulse 112 H 08/14/20 09:15 Resp 20 H 08/14/20 09:14 BP 114/76 08/14/20 08:00 Pulse Ox 95 08/14/20 09:14 Discharge Plan Discharge Patient Disposition: Xfer [facility] Condition: Stable Prescriptions: New ondansetron 4 mg tablet,disintegrating 4 mg PO Q6H PRN (Reason: nausea and vomiting) Qty: 14 RF: 0 Protonix 40 mg tablet,delayed release (DR/EC) 40 mg PO BID Qty: 60 RF: 0 Continued citalopram [Celexa] 40 mg Tablet 20 mg PO DAILY@0800 RF: 0 acetaminophen [Tylenol Arthritis Pain] 650 mg Tablet Extended Release 650 mg PO DAILY PRN (Reason: Pain) RF: 0 montelukast [Singulair] 10 mg Tablet 10 mg PO DAILY@1999 RF: 0 carbidopa-levodopa 25-100 mg Tablet 1 tab PO BID@ RF: 0 cholecalciferol (vitamin D3) [Vitamin D3] 1,000 unit Capsule 1,000 unit PO DAILY@ RF: 0 Combivent Respimat 20-100 mcg/actuation Mist 1 puff INHALATION QID RF: 0 Robaxin-750 500 mg PO BID@ RF: 0 ondansetron HCl 4 mg tablet 4 mg PO Q4H PRN (Reason: NAUSEA/VOMITING) RF: 0 alendronate 70 mg Tablet 70 mg PO Q7D RF: 0 ipratropium-albuterol 0.5 mg-3 mg(2.5 mg base)/3 mL Solution For Nebulization 3 ml INHALATION TID@, RF: 0 albuterol sulfate 2.5 mg /3 mL (0.083 %) Solution For Nebulization 2.5 mg INHALATION Q4H PRN (Reason: Shortness Of Breath) RF: 0 divalproex 250 mg Tablet,Delayed Release (Dr/Ec) 250 mg PO BID@08,20 RF: 0 Senna-S 8.6-50 mg Tablet 1 tab-cap PO BID PRN (Reason: Constipation) RF: 0 tramadol 50 mg Tablet 50 mg PO Q4H PRN (Reason: Pain) RF: 0 pantoprazole [Protonix] 20 mg Tablet,Delayed Release (Dr/Ec) 40 mg PO BID@08,20 RF: 0 Milk of Magnesia 400 mg/5 mL Suspension 30 ml PO DAILY PRN (Reason: Constipation) RF: 0 bisacodyl 10 mg Suppository 10 mg AR DAILY PRN (Reason: Constipation) RF: 0 Enema Disposable 19-7 gram/118 mL Enema 118 ml AR DAILY PRN (Reason: Constipation) RF: 0 polyethylene glycol 3350 [Miralax] 17 gram/dose Powder 17 g PO DAILY@08 RF: 0 fluticasone propionate 50 mcg/actuation [place],Suspension 1 spray INTRANASAL BID PRN (Reason: Nasal Congestion) RF: 0 bupropion HCl 150 mg Tablet Extended Release 24 Hr 150 mg PO DAILY@0800 RF: 0 TwoCal HN 0.08-2 gram-kcal/mL Liquid 30 ea PO TID@08,,20 RF: 0 Mucinex 600 mg Tablet Extended Release 12hr 600 mg PO Q12H PRN (Reason: Nasal Congestion) RF: 0 Held Eliquis 2.5 mg Tablet 2.5 mg PO BID@,20 RF: 0 Hold Instructions: Resume on 09/02/20. Discontinued prednisone 20 mg Tablet 40 mg PO DAILY RF: 0 Discharge Orders: Discharge Order (Routine); Ordered 08/14/20 Ordered By: Milton Hebert Referrals: Keagan Chris [Primary Care Provider] - 08/22/20 9:30 am (WILL BE TELEPHONE APPOINTMENT) Discharge Diet: Advance as tolerated and GI Soft Discharge Activity: Resume usual activity Patient Instructions: Acute Nausea and Vomiting (ED) Activity Restrictions/Additional Instructions: Non Spicy food. Ensure with each meals Hold eliquis for 2 weeks. Restart Eliquis and follow up CBC weekly for 2 weeks. Code status has been changed to DNR/DNI after extensive discussion with patient. Discharge Attestations Time Spent in Discharge Care*: greater than 30 min Specific Discharge Activities: educating patient, educating and/or supporting family/caregiver, discussing with pcp/other providers, discussing with correctional counselor/case manager/social workers/dc planners, documenting/other paperwork and evaluating patient/reviewing data Status at Discharge: Cognitive status at discharge: cognitively intact, Behavioral status at discharge: cooperative, Functional status at discharge: bed bound Overall status at discharge: patient is back to baseline Quality Metrics Clinical Quality Measures During this hospital stay, did patient experience: None Coding Level of Care Code Acute Card Services Specialist for g Fwd Diagnoses Hematemesis K92.0 Nausea presence: with nausea Large hiatal hernia K44.9 Microcytic hypochromic anemia D50.9 History of DVT (deep vein thrombosis) Z86.718 Osteoporosis M81.0 Osteoporosis type: unspecified Presence of current pathological fracture: without current pathological fracture Asthma J45.909 Asthma complication type: unspecified Asthma persistence: unspecified Asthma severity: unspecified severity
[2020-08-14] MEDS: TRAMadol 50 mg Tablet PO (12:07)
== END 2020-08-14 16:00 | disposition skilled nursing facility (03) ==
LOC: ER 20:31 → MEDSURG 21:11
PROVIDERS: Admitting Provider Hospitalist; Emergency Provider Emergency Medicine; PCP Family Medicine; Visit Provider Student in an Organized Health Care Education/Training Program
DX: K92.0 Hematemesis (principal); K44.9 Diaphragmatic hernia without obstruction or gangrene; D50.9 Iron deficiency anemia, unspecified; Z86.718 Personal history of other venous thrombosis and embolism; M81.0 Age-related osteoporosis without current pathological fracture; J45.909 Unspecified asthma, uncomplicated; G20 Parkinson's disease; F03.90 Unspecified dementia, unspecified severity, without behavioral disturbance, psychotic disturbance, mood disturbance, and anxiety; Z86.16 Personal history of COVID-19; Z79.01 Long term (current) use of anticoagulants; F41.9 Anxiety disorder, unspecified
CPT/HCPCS: 12345; 36415; 71045; 74177; 80048; 80053; 80164; 81003; 83540; 83550; 83735; 84100; 85014; 85018; 85025; 85610; 87426; 94640; 96361; 96365; 96366; 96375; 99283; 99285; C9113; G0378; J2270; J2405; J7030; Q9967

== ENCOUNTER 2020-09-17 11:11 | Emergency (ER) | payer OTHER, MEDICARE, SELFPAY ==
[2020-09-17 11:12] VITALS: BP 106/71; PULSE 100; RESP 16; TEMP 36.9; O2SAT 100; BMI 19.5
[2020-09-17 11:23] VITALS: BP 106/71; PULSE 100; RESP 18; O2SAT 98
--- NOTE | 2020-09-17 11:30 | XR_ITS ---
WS: [id number] XR chest 1V portable [id number] REASON FOR EXAM: dyspnea/cough FINDINGS: There is bowel overlying the left lower medial lung field, secondary to either a focal diaphragmatic eventration or sam herniation. This was seen on the previous examination of 08/14/2020 and 10/26/2019. Compared to the most recent examination patient has developed a diffuse interstitial infiltrative pat tern centrally and in the right lower lung. Interstitial changes in the right lower lung have the hardy earance of Audra B lines. Left lower lung is obscured by the overlying bowel. Likely there are infil trative changes in this region as well. No other significant interval change or new findings. XR/XR chest 1V portable [id number] IMPRESSION: Bowel overlying the left lower medial hemithorax as above. Infiltrative changes which are most compatible with congestive heart failure ho wever acute pneumonitis cannot be excluded.
[2020-09-17 12:02] VITALS: BP 105/64; PULSE 99; RESP 17; O2SAT 93
[2020-09-17 12:08] LABS: Add Urine Microscopic? NO
[2020-09-17 12:09] LABS: Basophils % 0.2 %; Eosinophils # 0.2 10^3/uL (0.0-0.8); Eosinophils % 1.5 %; Hematocrit 26.7 % (37.0-47.0); Hemoglobin 7.9 g/dL (11.5-15.3); Lymphocytes # 0.7 10^3/uL (0.8-4.8); Lymphocytes % 6.7 %; Mean Corpuscular HGB Conc 29.6 g/dL (30.0-36.0); Mean Corpuscular Hemoglobin 21.6 pg (28.0-34.0); Mean Corpuscular Volume 73.2 fL (81-99); Mean Platelet Volume 9.6 fL (7.4-10.4); Monocytes % 9.7 %; Neutrophils # 8.15 10^3/uL (1.8-7.7); Neutrophils % 80.6 %; Nucleated Red Blood Cells % 0 %; Platelet Count 317 10^3/cmm (130-400); Red Blood Count 3.65 10^6/uL (4.1-5.3); Red Cell Distribution Width 17.8 % (12.1-15.1); White Blood Count 10.1 10^3/uL (4.0-10.0)
[2020-09-17 12:20] LABS: Bilirubin Urine 1+ (Negative); Blood Urine Neg (Negative); Glucose Urine UA Norm (Normal); Ketones Urine 1+ (Negative); Leukocyte Esterase Urine Negative (Negative); Nitrate Urine Negative (Negative); Protein Urine Neg (Negative); Urine Appearance Clear (CLEAR); Urine Color Yellow (Yellow); Urobilinogen Urine 4 mg/dL (Negative); pH Urine 7 (5-7)
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
[2020-09-17 12:27] LABS: Alanine Aminotransferase 18 U/L (0-33); Albumin Level 2.3 g/dL (3.5-5.2); Alkaline Phosphatase 100 IU/L (35-105); Anion Gap 10.7 (5-19); Aspartate Amino Transferase 29 U/L (0-32); Blood Urea Nitrogen 20 mg/dL (8-23); Calcium 7.6 mg/dL (8.5-10.5); Carbon Dioxide 24 mmol/L (22-29); Chloride 99 mmol/L (98-107); Glomerular Filtration Rate 158.3 mL/min (90-130); Glucose 77 mg/dL (65-115); Osmolality Calculated 271 mOsm/kg (285-295); Potassium 3.7 mmol/L (3.5-5.1); Sodium 130 mmol/L (136-145); Total Bilirubin 0.2 mg/dL (0.15-1.2); Total Protein 5.3 g/dL (6.6-8.7)
[2020-09-17 12:44] VITALS: BP 103/63; PULSE 96; RESP 16; O2SAT 94
[2020-09-17 13:14] VITALS: BP 98/56; PULSE 91; RESP 16; O2SAT 94
== END 2020-09-17 14:17 | disposition home or self-care (01) ==
PROVIDERS: Emergency Provider Family Medicine; PCP Family Medicine
DX: J18.9 Pneumonia, unspecified organism (principal); D64.89 Other specified anemias; Z79.01 Long term (current) use of anticoagulants; E78.5 Hyperlipidemia, unspecified; I10 Essential (primary) hypertension; G20 Parkinson's disease; F02.80 Dementia in other diseases classified elsewhere, unspecified severity, without behavioral disturbance, psychotic disturbance, mood disturbance, and anxiety
CPT/HCPCS: 51701; 71045; 80053; 81003; 85025; 99283

== ENCOUNTER 2020-10-05 09:32 | Inpatient (IN) | payer OTHER, MEDICARE, SELFPAY ==
[2020-10-05] VITALS (70 sets, daily range): BP systolic 79–117; BP diastolic 34–78; PULSE 67–126; RESP 10–23; TEMP 36.5–37.2; O2SAT 86–100; BMI 17.7
--- NOTE | 2020-10-05 09:49 | ECG_ITS ---
[facility] Test Date: 2020-10-05 Pat Name: Christelle Matthew Department: Room: Gender: Female Transportation Inspector: : 1950 Requested By: Trang Rivera Order Number: [id number] [place] MD: Giacomo Person M.D. Measurements Intervals [place] Rate: 118 P: 76 OK: 133 QRS: 235 QRSD: 88 T: 57 QT: 323 QTc: 453 Interpretive Statements SINUS TACHYCARDIA POSSIBLE LEFT ATRIAL ENLARGEMENT [-0.1mV P WAVE IN V1/V2] PATTERN CONSISTENT WITH PULMONARY DISEASE POSSIBLE RIGHT VENTRICULAR HYPERTROPHY [SOME/ALL OF: PROMINENT R IN V1, LATE TRANSITION, RAD, JOHNY, SSS] MODERATE ST DEPRESSION [0.05+ mV ST DEPRESSION] No previous ECG available for comparison Electronically Signed On 10-05-2020 18:31:50 CDT by Giacomo Person M.D. [id number]
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
[2020-10-05 10:08] LABS: Basophils % 0.2 %; Eosinophils % 0.2 %; Hematocrit 30.5 % (37.0-47.0); Hemoglobin 9.1 g/dL (11.5-15.3); Lymphocytes # 1.5 10^3/uL (0.8-4.8); Lymphocytes % 10.7 %; Mean Corpuscular HGB Conc 29.8 g/dL (30.0-36.0); Mean Corpuscular Hemoglobin 21.8 pg (28.0-34.0); Mean Corpuscular Volume 73.1 fL (81-99); Mean Platelet Volume 9.5 fL (7.4-10.4); Monocytes # 1.2 10^3/uL (0.2-0.9); Monocytes % 8.3 %; Neutrophils # 11.39 10^3/uL (1.8-7.7); Nucleated Red Blood Cells % 0 %; Platelet Count 467 10^3/cmm (130-400); Red Blood Count 4.17 10^6/uL (4.1-5.3); Red Cell Distribution Width 21.4 % (12.1-15.1); White Blood Count 14.2 10^3/uL (4.0-10.0)
[2020-10-05] MEDS: pantoprazole 40 mg SDV 80 MG IVP (10:12)
[2020-10-05] MEDS: pantoprazole 40 MG in sodium chloride 0.9% (plus) 100 ML 20 MG IV (10:12)
[2020-10-05] MEDS: sodium chloride 0.9% 1,000 ML 999 ML IV (10:13)
[2020-10-05 10:24] LABS: Alanine Aminotransferase 10 U/L (0-33); Albumin Level 2.6 g/dL (3.5-5.2); Alkaline Phosphatase 74 IU/L (35-105); Blood Urea Nitrogen 27 mg/dL (8-23); Calcium 8.1 mg/dL (8.5-10.5); Carbon Dioxide 22 mmol/L (22-29); Chloride 98 mmol/L (98-107); Globulin 3.9 g/dL (1.3-4.6); Glomerular Filtration Rate 158.3 mL/min (90-130); Glucose 122 mg/dL (65-115); Osmolality Calculated 288 mOsm/kg (285-295); Sodium 136 mmol/L (136-145); Total Bilirubin 0.3 mg/dL (0.15-1.2); Total Protein 6.5 g/dL (6.6-8.7)
[2020-10-05 10:30] LABS: Anion Gap 19.5 (5-19); Aspartate Amino Transferase 19 U/L (0-32); Potassium 3.5 mmol/L (3.5-5.1)
--- NOTE | 2020-10-05 10:30 | CT_ITS ---
WS: [id number] CT scan of the abdomen and pelvis with IV contrast. Additional two-dimensional coronal and sagittal r econstruction was performed. 10/05/2020 Clinical Data: abdominal pain Comparison: CT abdomen and pelvis, 08/13/2020 DLP: 863.[address] scans at [facility] use at least one of these dose optimization techniques: automat ed exposure control; mA and/or kV adjustment per patient size (includes targeted exams where dose is matched to clinical indication); or iterative reconstruction. Findings: There is a small right pleural effusion. The stomach is herniated into the posterior mediastinum but is unchanged in position. There is fluid in the stomach. The liver, spleen and adrenal glands are normal. There are gallstones within the gallbladder but no p ericholecystic fluid is seen. The kidneys show equal bilateral contrast excretion with no cyst or masses. No hydronephrosis or yovani l masses are seen. The abdominal aorta is normal in size. No appendicitis or diverticulitis is seen. This small bowel and colon showing a large amount of fecal material within. No abscess, adenopathy, ascites, mass, obstruction or free air is seen. The bladder is unremarkable. The uterus is normal. No inguinal hernia is seen. The bones of the lower thorax, lumbar spine, pelvis, and hips show only a superior loss of height of the L5 vertebral body unchanged. CT/CT abdomen pelvis w con* [id number] Impression: 1. Intrathoracic location of the stomach unchanged. 2. Right pleural effusion. 3. Cholelithiasis but no cholecystitis is seen. 4. Negative for acute intra-abdominal or pelvic abnormalities.
[2020-10-05] MEDS: iohexol 300 mg/mL 100 mL Btl IV (10:54)
[2020-10-05 12:38] LABS: Bilirubin Urine 1+ (Negative); Blood Urine 2+ (Negative); Glucose Urine UA Norm (Normal); Ketones Urine 3+ (Negative); Leukocyte Esterase Urine Negative (Negative); Nitrate Urine Negative (Negative); Protein Urine 1+ (Negative); Urine Appearance Clear (CLEAR); Urine Color Yellow (Yellow); Urobilinogen Urine 1 mg/dL (Negative); pH Urine 5 (5-7)
[2020-10-05 12:40] LABS: Bacteria Urine 1+ /hpf; Mucus Urine 1+ /hpf
[2020-10-05 12:41] LABS: Squamous Epithelial Cell Urine 0-4 /hpf (0-5)
[2020-10-05 12:42] LABS: WBC Urine 0-4 /hpf (0-5)
[2020-10-05 12:43] LABS: Add Urine Culture? No
--- NOTE | 2020-10-05 13:00 | SUR.OPER ---
normal saline started in ER ,was ended by RUBBER STAMP ASSEMBLER.
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
[2020-10-05 16:35] LABS: Hemoglobin 8.7 g/dL (11.5-15.3)
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
[2020-10-05] MEDS: LORazepam 2 mg/mL INJ 1 mL 0.25 MG IVP (17:08)
[2020-10-05 19:51] LABS: Hemoglobin 7.6 g/dL (11.5-15.3)
[2020-10-05] MEDS: pantoprazole 40 mg SDV IVP (20:18)
--- NOTE | 2020-10-05 20:28 | PC.NURSE ---
opens eyes to verbal breifly, mumbles few sounds but not able to understand, color WNL, unlabored RR RA/ placed trendelenburg for BP 88/53
--- NOTE | 2020-10-05 21:29 | PC.NURSE ---
Addendum entered by Gracy hCow RN 10/05/20 21:30: Verified and received verbal consent from Ms. Ontiveros daughter; Selina, via telephone conversation. 2nd RN verification completed by myself and Josue Grover RN. Consent form signed, and placed in patient's chart. Original Note: Verified telephone consent from Angel Ontiveros (daughter), for Blood products if the need were to arise
[2020-10-05] MEDS: ipratropium-albuterol 3 mL Neb INHALATION (21:32)
[2020-10-06] VITALS (26 sets, daily range): BP systolic 51–130; BP diastolic 29–86; PULSE 89–111; RESP 15–34; TEMP 36.6–36.8; O2SAT 79–98
[2020-10-06 00:07] LABS: Hemoglobin 8.1 g/dL (11.5-15.3)
[2020-10-06 05:16] LABS: Basophils % 0.5 %; Eosinophils # 0.3 10^3/uL (0.0-0.8); Eosinophils % 3.8 %; Hematocrit 27.2 % (37.0-47.0); Hemoglobin 7.7 g/dL (11.5-15.3); Lymphocytes # 1.3 10^3/uL (0.8-4.8); Lymphocytes % 16.1 %; Mean Corpuscular HGB Conc 28.3 g/dL (30.0-36.0); Mean Corpuscular Volume 74.3 fL (81-99); Mean Platelet Volume 9.1 fL (7.4-10.4); Monocytes # 0.8 10^3/uL (0.2-0.9); Monocytes % 10.3 %; Neutrophils # 5.55 10^3/uL (1.8-7.7); Neutrophils % 68.7 %; Nucleated Red Blood Cells % 0 %; Platelet Count 359 10^3/cmm (130-400); Red Blood Count 3.66 10^6/uL (4.1-5.3); Red Cell Distribution Width 21.6 % (12.1-15.1); White Blood Count 8.1 10^3/uL (4.0-10.0)
[2020-10-06 05:46] LABS: Alanine Aminotransferase 7 U/L (0-33); Alkaline Phosphatase 59 IU/L (35-105); Anion Gap 13.9 (5-19); Aspartate Amino Transferase 10 U/L (0-32); Carbon Dioxide 23 mmol/L (22-29); Chloride 107 mmol/L (98-107); Globulin 3.1 g/dL (1.3-4.6); Glucose 73 mg/dL (65-115); Osmolality Calculated 295 mOsm/kg (285-295); Sodium 141 mmol/L (136-145); Total Bilirubin 0.3 mg/dL (0.15-1.2)
[2020-10-06 06:25] LABS: Albumin Level 2.5 g/dL (3.5-5.2); Blood Urea Nitrogen 24 mg/dL (8-23); Calcium 7.7 mg/dL (8.5-10.5); Glomerular Filtration Rate 158.3 mL/min (90-130); Potassium 3.1 mmol/L (3.5-5.1); Total Protein 5.9 g/dL (6.6-8.7)
--- NOTE | 2020-10-06 06:55 | PC.NURSE ---
uneventful night, no C/O noted, supine 30 degrees, call light within reach
[2020-10-06] MEDS: divalproex DR 500 mg Tablet PO ×2 (07:57→21:36)
[2020-10-06] MEDS: lidocaine 1% 5 ML in potassium chloride premix 100 ML 25 ML IV (07:57)
[2020-10-06] MEDS: buPROPion XL (24 HR) 150 mg Tablet PO (07:57)
[2020-10-06] MEDS: LORazepam 2 mg/mL INJ 1 mL 0.25 MG IVP (07:59)
[2020-10-06] MEDS: ipratropium-albuterol 3 mL Neb INHALATION ×3 (08:30→20:09)
[2020-10-06] MEDS: pantoprazole 40 mg SDV IVP ×2 (08:43→21:36)
--- NOTE | 2020-10-06 10:48 | P.PN_ITS ---
Subjective Subjective: Interval history: She has remained stable overnight in the ICU, no further episodes of hematemesis, melena or hematochezia. Denies any abdominal pain today Vitals/I&O/Wt Last Vital Signs Temp 97.9 F 10/06/20 08:00 Pulse 108 H 10/06/20 10:00 Resp 34 H 10/06/20 10:00 BP 107/66 10/06/20 08:00 Pulse Ox 91 10/06/20 10:00 10/05/20 10/06/20 10/06/20 22:59 06:59 14:59 Intake Total 100 / 1100 Balance 100 / 1100 Weight last 48 hrs Weight 110 lb Physical Exam Narrative: EXAM NARRATIVE: Abdomen: Soft, nondistended, nontender Data : 10/07/20 06:22 10/07/20 06:22 A&P Assessment and plan (1) Gastritis: 70-year-old female with upper GI bleed likely secondary to gastritis currently hemodynamically stable. Hemoglobin 7.7 Start clear liquid diet Transition to Protonix 40 mg twice daily, considering adding Carafate Status: Acute Qualifiers: Chronicity: acute Gastritis bleeding: presence of bleeding unspecified Gastritis type: unspecified gastritis Qualified Code(s): K29.00 - Acute gastritis without bleeding Attestations Medical Necessity Statement*: Upper GI bleed Coding Level of Care Code Acute Project Administrative Assistant for [facility] Diagnoses Gastritis K29.00 Chronicity: acute Gastritis bleeding: presence of bleeding unspecified Gastritis type: unspecified gastritis
--- NOTE | 2020-10-06 11:47 | PM.PN ---
Subjective Subjective: Interval history: This morning she is feeling thirsty. Denies any abdominal pain. Denies chest pressure or trouble breathing. Vitals/I&O/Wt Last Vital Signs Temp 97.9 F 10/06/20 08:00 Pulse 108 H 10/06/20 10:00 Resp 34 H 10/06/20 10:00 BP 107/66 10/06/20 08:00 Pulse Ox 91 10/06/20 10:00 10/05/20 10/06/20 10/06/20 22:59 06:59 14:59 Intake Total 100 / 1100 Balance 100 / 1100 Weight last 48 hrs Weight 49.895 kg Physical Exam Const: COMMON NORMALS: no acute distress and alert GENERAL APPEARANCE: frail appearing NUTRITIONAL APPEARANCE: thin ORIENTATION/CONSCIOUSNESS: Yes awake OTHER: Generally weak HENMT: COMMON NORMALS: oropharynx normal Neck/C-Spine: COMMON NORMALS: no JVD Resp: COMMON NORMALS: normal respiratory effort and clear to auscultation bilaterally AUSCULTATION: clear to auscultation bilaterally Cardio: COMMON NORMALS: no JVD, regular rhythm, S1 normal heart sound present, S2 normal heart sound present and No murmurs present (Cardio) RHYTHM: regular rhythm HEART SOUNDS: S1 normal heart sound present and S2 normal heart sound present GI: COMMON NORMALS: Normal to inspection, nondistended, normoactive bowel sounds present, Soft to palpation and non-tender PALPATION: Yes Soft to palpation Extremity: COMMON NORMALS: no joint enlargement and no pedal edema Neuro: COMMON NORMALS: moves all extremities SENSORIUM/ORIENTATION: Yes alert Skin: COMMON NORMALS: no rashes or lesions noted GENERAL SKIN EXAM: no rashes or lesions noted Data : 10/06/20 05:03 10/06/20 05:03 A&P Assessment and plan (1) Upper gastrointestinal hemorrhage: Gastritis noted on EGD. Continue PPI. Trial of clear liquid diet. Monitor hemoglobin. Move out of ICU. If hemoglobin remained stable, tolerating diet, tentatively leukemia return to the halfway tomorrow. Only SCDs for VT prophylaxis. Would discontinue citalopram as this may be a cause of hemorrhage. Stop fluticasone. Status: Acute (2) Hypotension: Improved with 1 L fluid bolus on admission. Monitor blood pressures. Blood pressure still on the soft side, so we will hold Sinemet for now. Status: Acute (3) Leukocytosis: Resolved. Possibly some mild pneumonitis after vomiting. No pneumonia at this time. Monitor. UA not suggestive of UTI. Status: Acute (4) Microscopic hematuria: Incidentally noted on UA. Monitor. Will need follow-up to assess for resolution. Status: Acute Additional A&P Information Hypokalemia: Replace Nonambulatory at baseline: Gets around in a wheelchair, mostly pushed around by staff Mild left heel redness noted at the halfway History of DVT, Eliquis had to be stopped due to GI bleeding Asthma HTN, HLD PD Dementia Other chronic conditions. Attestations Medical Necessity Statement*: Continue admission for assessment of management of GI bleeding, acute anemia. Coding Level of Care Code Acute Steam Turbine Assembler for [facility] Diagnoses Upper gastrointestinal hemorrhage K92.2 Hypotension I95.9 Leukocytosis D72.829 Microscopic hematuria R31.29
[2020-10-06] MEDS: potassium chloride oral liq 20 mEq/15 mL UDC 40 MEQ PO (12:17)
--- NOTE | 2020-10-06 16:05 | PC.NURSE ---
patient transferred from ICU to med-surg floor via bed. Receiving nurse at bedside at time of transfer. Meds given to nurse. Patient stable at time of transfer. Denies c/o.
[2020-10-06] MEDS: montelukast sodium 10 mg Tablet PO (21:36)
[2020-10-07] VITALS (15 sets, daily range): BP systolic 85–105; BP diastolic 52–68; PULSE 63–101; RESP 16–20; TEMP 36.4–37.1; O2SAT 96–100
[2020-10-07 07:04] LABS: Basophils # 0.1 10^3/uL (0.0-0.1); Basophils % 0.9 %; Eosinophils # 0.4 10^3/uL (0.0-0.8); Eosinophils % 5.6 %; Hematocrit 26.4 % (37.0-47.0); Hemoglobin 7.3 g/dL (11.5-15.3); Lymphocytes # 1.5 10^3/uL (0.8-4.8); Lymphocytes % 21.4 %; Mean Corpuscular HGB Conc 27.7 g/dL (30.0-36.0); Mean Corpuscular Hemoglobin 21.6 pg (28.0-34.0); Mean Corpuscular Volume 78.1 fL (81-99); Mean Platelet Volume 9.3 fL (7.4-10.4); Monocytes # 0.9 10^3/uL (0.2-0.9); Monocytes % 12.7 %; Nucleated Red Blood Cells % 0 %; Platelet Count 299 10^3/cmm (130-400); Red Blood Count 3.38 10^6/uL (4.1-5.3); Red Cell Distribution Width 21.6 % (12.1-15.1); White Blood Count 6.8 10^3/uL (4.0-10.0)
[2020-10-07 07:25] LABS: Alanine Aminotransferase 9 U/L (0-33); Albumin Level 2.4 g/dL (3.5-5.2); Alkaline Phosphatase 57 IU/L (35-105); Anion Gap 10.6 (5-19); Aspartate Amino Transferase 13 U/L (0-32); Blood Urea Nitrogen 16 mg/dL (8-23); Calcium 7.7 mg/dL (8.5-10.5); Carbon Dioxide 23 mmol/L (22-29); Chloride 107 mmol/L (98-107); Glomerular Filtration Rate 158.3 mL/min (90-130); Glucose 86 mg/dL (65-115); Osmolality Calculated 284 mOsm/kg (285-295); Potassium 3.6 mmol/L (3.5-5.1); Sodium 137 mmol/L (136-145); Total Bilirubin 0.2 mg/dL (0.15-1.2); Total Protein 5.4 g/dL (6.6-8.7)
[2020-10-07] MEDS: ipratropium-albuterol 3 mL Neb INHALATION ×2 (09:06→15:14)
[2020-10-07] MEDS: buPROPion XL (24 HR) 150 mg Tablet PO (09:44)
[2020-10-07] MEDS: divalproex DR 500 mg Tablet PO (09:44)
[2020-10-07] MEDS: pantoprazole 40 mg SDV IVP (09:45)
[2020-10-07] MEDS: TRAMadol 50 mg Tablet PO (09:48)
--- NOTE | 2020-10-07 12:04 | P.PN_ITS ---
Subjective Subjective: Interval history: Tolerating clear liquid diet, no nausea, vomiting or hematemesis. Patient had 1 episode of melena Vitals/I&O/Wt Last Vital Signs Temp 98.2 F 10/07/20 11:09 Pulse 86 10/07/20 11:09 Resp 18 10/07/20 11:09 BP 103/64 10/07/20 11:09 Pulse Ox 96 10/07/20 11:09 10/06/20 10/07/20 10/07/20 22:59 06:59 14:59 Intake Total 140 / 485 240 / 240 Output Total 0 / 0 Balance 140 / 485 240 / 240 Physical Exam Narrative: EXAM NARRATIVE: Abdomen: Soft, nontender, nondistended Data : 10/07/20 06:22 10/07/20 06:22 A&P Assessment and plan (1) Gastritis: 70-year-old female with upper GI bleed likely secondary to gastritis currently hemodynamically stable. Hemoglobin down slightly from 7.7-7.3. No evidence of active GI bleed Advance to full liquid diet Transition to Protonix 40 mg twice daily, considering adding Carafate Status: Acute Qualifiers: Chronicity: acute Gastritis bleeding: presence of bleeding unspecified Gastritis type: unspecified gastritis Qualified Code(s): K29.00 - Acute gastritis without bleeding Attestations Medical Necessity Statement*: GI bleed requiring inpatient stay for mo nitoring Coding Level of Care Code Acute [employer] for [facility] Fwd Diagnoses Gastritis K29.00 Chronicity: acute Gastritis bleeding: presence of bleeding unspecified Gastritis type: unspecified gastritis
--- NOTE | 2020-10-07 13:25 | PC.NURSE ---
there is no type and screen blood band on patient. lead technical writer and student removed all patient's linens and checked patient's room. lab notified. Ariana in lab said she will have to redraw patient.
--- NOTE | 2020-10-07 16:49 | P.DS_ITS ---
Discharge Providers Date of Admission: 10/05/20 12:14 Date of Discharge: October 07, 2020 Attending Provider at Admission: Sixto Flores Attending Provider at Discharge: Sixto Flores Primary Care Provider: Keagan Chris Diagnoses at Discharge Discharge Diagnosis (1) Gastritis: Status: Acute Qualifiers: Chronicity: acute Gastritis bleeding: presence of bleeding unspecified Gastritis type: unspecified gastritis Qualified Code(s): K29.00 - Acute gastritis without bleeding Reason for Visit Reason for Visit: GI BLEED Hospital Course Hospital Course Pleasant 70-year-old lady [facility] resident, nonambulatory at baseline, was brought in for evaluation from [facility] due to recurrence of coffee-ground emesis. Previously with history of coffee-ground emesis in August, at that time declined upper endoscopy. During that time was on Eliquis, which was discontinued. On this presentation was generally weak, hypotensive, blood pressure as low as 86/58, which received 1 L saline bolus with improvement. Started on Protonix IV. CT abdomen pelvis noted intrathoracic stomach, right pleural effusion, cholelithiasis, no acute abnormalities. Surgery was consulted from ER and as at this time she was agreeable for assessment took her directly for EGD which revealed gastritis. She was continued on PPI. Monitored in ICU. She had no further recurrence of coffee-ground emesis. Was started on trial of diet which she tolerated well. As she appears to have lost some blood with hemoglobin declined to 7.3 she is receiving 1 unit PBC transfusion. She is otherwise feeling well. Denies any pain or discomfort. She is feeding herself during lunch. Since she is doing well she will be discharged later today for [facility]. Hemoglobin level is requested to be rechecked in 3 days. May benefit from a brief course of sucralfate. It it is also asked that citalopram and fluticasone be discontinued due to potential adverse effect of bleeding, gastritis respectively. In case of any recurrence of GI bleeding consider assessment by gastroenterology. On presentation she was also noted to have incidental microscopic hematuria on evaluation by UA. Please follow-up urinalysis at the next visit to assess for resolution. Physical Exam Const: COMMON NORMALS: no acute distress and alert GENERAL APPEARANCE: cooperative, comfortable and frail appearing NUTRITIONAL APPEARANCE: thin ORIENTATION/CONSCIOUSNESS: Yes awake OTHER: Awake, alert, in good spirits. Conversant. Denies any pain or discomfort. Enjoying her lunch. HENMT: COMMON NORMALS: oropharynx normal Neck/C-Spine: COMMON NORMALS: no JVD Resp: COMMON NORMALS: normal respiratory effort and clear to auscultation bilaterally AUSCULTATION: clear to auscultation bilaterally Cardio: COMMON NORMALS: no JVD, regular rhythm, S1 normal heart sound present, S2 normal heart sound present and No murmurs present (Cardio) RHYTHM: regular rhythm HEART SOUNDS: S1 normal heart sound present and S2 normal heart sound present GI: COMMON NORMALS: Normal to inspection, nondistended, normoactive bowel sounds present, Soft to palpation and non-tender PALPATION: Yes Soft to palpation Extremity: COMMON NORMALS: no joint enlargement and no pedal edema Neuro: COMMON NORMALS: moves all extremities SENSORIUM/ORIENTATION: Yes alert Skin: COMMON NORMALS: no rashes or lesions noted GENERAL SKIN EXAM: no rash es or lesions noted Discharge Data Data Completed and Pending: Completed Studies During Hospitalization Category Date Time Status CT abdomen pelvis w con* [id number] Urge nt Cat Scan 10/05/20 10:30 Completed Pending at discharge Category Date Time Status Complete Blood Co unt w/Auto AM LABS Lab 10/08/20 04:00 Ordered Comprehensive Met abolic Panel AM LA BS Lab 10/08/20 04:00 Ordered Labs from last 24 hours 10/07/20 10/07/20 10/07/20 13:45 06:22 06:22 WBC 6.8 RBC 3.38 L Hgb 7.3 L Hct 26.4 L MCV 78.1 L MCH 21.6 L MCHC 27.7 L RDW 21.6 H Plt Count 299 MPV 9.3 Neut % (Auto) 59.0 Lymph % (Auto) 21.4 [place] % (Auto) 12.7 Eos % (Auto) 5.6 Baso % (Auto) 0.9 Neut # (Auto) 4.00 Lymph # (Auto) 1.5 [place] # (Auto) 0.9 Eos # (Auto) 0.4 Baso # (Auto) 0.1 Nucleated RBC % (a uto) 0 Nucleated RBCs # 0.0 Sodium 137 Potassium 3.6 Chloride 107 Carbon Dioxide 23 Anion Gap 10.6 BUN 16 Creatinine 0.4 L GFR Calculation 158.3 H Glucose 86 Calculated Osmolal ity 284 L Calcium 7.7 L Total Bilirubin 0.2 AST 13 ALT 9 Alkaline Phosphata se 57 Total Protein 5.4 L Albumin 2.4 L Globulin 3.0 Blood Type A Positive Rho(D) Type Positive / 4+ Antibody Screen Negative Crossmatch See Detail 10/05/20 09:44 WBC RBC Hgb Hct MCV MCH MCHC RDW Plt Count MPV Neut % (Auto) Lymph % (Auto) [place] % (Auto) Eos % (Auto) Baso % (Auto) Neut # (Auto) Lymph # (Auto) [place] # (Auto) Eos # (Auto) Baso # (Auto) Nucleated RBC % (a uto) Nucleated RBCs # Sodium Potassium Chloride Carbon Dioxide Anion Gap BUN Creatinine GFR Calculation Glucose Calculated Osmolal ity Calcium Total Bilirubin AST ALT Alkaline Phosphata se Total Protein Albumin Globulin Blood Type A Positive Rho(D) Type Positive / 4+ Antibody Screen Negative Crossmatch See Detail Vitals: Last Vital Signs Temp 97.7 F 10/07/20 16:05 Pulse 93 10/07/20 16:05 Resp 16 10/07/20 16:05 BP 90/55 10/07/20 16:05 Pulse Ox 98 10/07/20 16:05 Discharge Plan Discharge Patient Disposition: [facility] Condition: Stable Prescriptions: New sucralfate 1 gram tablet 1 g PO TID 28 Days Qty: 84 RF: 0 Continued divalproex 500 mg tablet,delayed release (DR/EC) 500 mg PO BID@, RF: 0 Phenergan 25 mg/mL Solution 25 mg IM .ONE TIME DOSE RF: 0 multivitamin with iron Tablet 1 tab PO DAILY@08 RF: 0 Protonix 40 mg tablet,delayed release (DR/EC) 40 mg PO BID@,20 RF: 0 acetaminophen [Tylenol Arthritis Pain] 650 mg Tablet Extended Release 650 mg PO DAILY PRN (Reason: Pain) RF: 0 montelukast [Singulair] 10 mg Tablet 10 mg PO DAILY@20 RF: 0 cholecalciferol (vitamin D3) [Vitamin D3] 1,000 unit Capsule 1,000 unit PO DAILY@08 RF: 0 Combivent Respimat 20-100 mcg/actuation Mist 1 puff INHALATION QID RF: 0 ondansetron HCl 4 mg tablet 4 mg PO Q4H PRN (Reason: NAUSEA/VOMITING) RF: 0 ipratropium-albuterol 0.5 mg-3 mg(2.5 mg base)/3 mL Solution For Nebulization 3 ml INHALATION TID@,,20 RF: 0 albuterol sulfate 2.5 mg /3 mL (0.083 %) Solution For Nebulization 2.5 mg INHALATION Q4H PRN (Reason: Shortness Of Breath) RF: 0 sennosides-docusate sodium [Senna-S] 8.6-50 mg Tablet 1 tab-cap PO BID PRN (Reason: Constipation) RF: 0 tramadol 50 mg Tablet 50 mg PO TID@,,20 RF: 0 magnesium hydroxide [Milk of Magnesia] 400 mg/5 mL Suspension 30 ml PO DAILY PRN (Reason: Constipation) RF: 0 bisacodyl 10 mg Suppository 10 mg VT DAILY PRN (Reason: Constipation) RF: 0 Enema Disposable 19-7 gram/118 mL Enema 118 ml VT DAILY PRN (Reason: Constipation) RF: 0 polyethylene glycol 3350 [Miralax] 17 gram/dose Powder 17 g PO DAILY@08 RF: 0 bupropion HCl 150 mg Tablet Extended Release 24 Hr 150 mg PO DAILY@08 RF: 0 TwoCal HN 0.08-2 gram-kcal/mL Liquid 30 ea PO TID@,, RF: 0 guaifenesin [Mucinex] 600 mg Tablet Extended Release 12hr 600 mg PO Q12H PRN (Reason: Nasal Congestion) RF: 0 Held carbidopa-levodopa 25-100 mg tablet extended release 1 tab PO BID@,20 RF: 0 Hold Instructions: Resume on 10/15/20. Discontinued citalopram [Celexa] 40 mg Tablet 40 mg PO DAILY@08 RF: 0 fluticasone propionate 50 mcg/actuation [place],Suspension 1 spray INTRANASAL BID PRN (Reason: Nasal Congestion) RF: 0 Discharge Orders: Discharge Order (Routine); Ordered 10/07/20 Ordered By: Sixto Flores Referrals: Keagan Chris [Primary Care Provider] - 4-7 days Discharge Diet: Advance as tolerated and Usual diet Patient Instructions: Gastrointestinal Bleeding (GEN), GI Discharge Instructions Activity Restrictions/Additional Instructions: Please recheck hemoglobin in 3 days. Follow-up blood count. In case of recurrence of anemia, and his low blood loss, please refer to gastroenterology for additional assessment. Avoid any blood thinners or antiplatelet medications. Please discontinue citalopram due to concern that one of the adverse effects is bleeding. Similarly due to gastritis, avoid fluticasone or other steroids. Avoid any NSAIDs. Discharge Attestations Time Spent in Discharge Care*: greater than 30 min Status at Discharge: Cognitive status at discharge: cognitively intact , Behavioral status at discharge: cooperative , Quality Metrics Clinical Quality Measures During this hospital stay, did patient experience: None Coding Level of Care Code Acute g FW DC note Diagnoses Gastritis K29.00 Chronicity: acute Gastritis bleeding: presence of bleeding unspecified Gastritis type: unspecified gastritis
[2020-10-07] MEDS: sodium chloride 0.9% (100 ml) 100 ML 200 ML (17:36)
--- NOTE | 2020-10-07 18:06 | PC.NURSE ---
called report to [facility] and spoke with MARISOL Velásquez.
[2020-10-08 00:09] VITALS: BP 94/58; PULSE 101; RESP 20; O2SAT 96
== END 2020-10-07 22:30 | disposition intermediate care facility (04) | DRG 379 ==
LOC: ER 12:43 → ICU 12:44 → MEDSURG 10-06 15:50
PROVIDERS: Surgery; Admitting Provider Internal Medicine; Emergency Provider Emergency Medicine; PCP Family Medicine; Visit Provider Internal Medicine
PROC: 0DJ08ZZ Inspection of Upper Intestinal Tract, Via Natural or Artificial Opening Endoscopic (ICD-10-PCS; CPT 43235; principal; 2020-10-05 13:30)
DX: K92.0 Hematemesis (principal); K29.00 Acute gastritis without bleeding; I95.9 Hypotension, unspecified; D64.9 Anemia, unspecified; R31.29 Other microscopic hematuria; D72.829 Elevated white blood cell count, unspecified; K92.1 Melena; E87.6 Hypokalemia; J45.909 Unspecified asthma, uncomplicated; I10 Essential (primary) hypertension; K21.9 Gastro-esophageal reflux disease without esophagitis; M06.9 Rheumatoid arthritis, unspecified; E78.5 Hyperlipidemia, unspecified; E55.9 Vitamin D deficiency, unspecified; F41.9 Anxiety disorder, unspecified; F32.9 Major depressive disorder, single episode, unspecified; F03.90 Unspecified dementia, unspecified severity, without behavioral disturbance, psychotic disturbance, mood disturbance, and anxiety; Z86.718 Personal history of other venous thrombosis and embolism; Z86.16 Personal history of COVID-19; Z99.3 Dependence on wheelchair
CPT/HCPCS: 36415; 36430; 43235; 74177; 80053; 81001; 85018; 85025; 86850; 86900; 86920; 93005; 94640; 96365; 96366; 96367; 96375; 99285; C9113; J2060; J2704; J3480; J7030; P9016; Q9967

== ENCOUNTER 2021-03-10 01:36 | Inpatient (IN) | payer OTHER, MEDICARE, SELFPAY ==
[2021-03-10] VITALS (27 sets, daily range): BP systolic 115–156; BP diastolic 75–101; PULSE 97–186; RESP 9–30; TEMP 36.4–37.2; O2SAT 77–100; BMI 18.6
[2021-03-10] MEDS: ondansetron 2 mg/ML SDV 2 mL 4 MG IVP (02:06)
[2021-03-10] MEDS: sodium chloride 0.9% 1,000 ML 999 ML IV (02:06)
--- NOTE | 2021-03-10 02:06 | CTR_ITS ---
PROCEDURE INFORMATION: Exam: CT Abdomen And Pelvis With Contrast Exam date and time: 03/10/2021 2:06 AM Age: 70 years old Clinical indication: Abdominal pain; Generalized; Additional info: Abd pain TECHNIQUE: Imaging protocol: Computed tomography of the abdomen and pelvis with contrast. Radiation optimization: All CT scans at this facility use at least one of these dose optimization techniques: automated exposure control; mA and/or kV adjustment per patient size (includes targeted exams where dose is matched to clinical indication); or iterative reconstruction. Contrast material: OMNI 300; Contrast volume: 75 ml; Contrast route: INTRAVENOUS (IV); COMPARISON: CT abdomen pelvis w con* [id number] 10/05/2020 11:08 AM RADIATION DOSE METRICS: Total DLP (mGy-cm): 707.67 FINDINGS: Lungs: The lung bases are clear. No effusion Mediastinal space: Large hiatal hernia. Liver: Liver is normal. Gallbladder and bile ducts: There is cholelithiasis without wall thickening or pericholecystic fluid. Pancreas: Normal. No ductal dilation. Spleen: Spleen is normal. Adrenal glands: Adrenals are normal. Kidneys and ureters: Kidneys are normal. Stomach and bowel: There is twisting of the cecum and its mesenteric attachments with dilation of the cecum and decompression of the distal bowel. Appendix: No evidence of appendicitis. Intraperitoneal space: Unremarkable. No free air. No significant fluid collection. Vasculature: Unremarkable. No abdominal aortic aneurysm. Lymph nodes: Unremarkable. No enlarged lymph nodes. Urinary bladder: Unremarkable as visualized. Reproductive: Unremarkable as visualized. Bones/joints: Unremarkable. No acute fracture. Soft tissues: Unremarkable. CT/CT abdomen pelvis w con* [id number] IMPRESSION: 1. Cecal volvulus. 2. Large hiatal hernia. 3. Cholelithiasis without cholecystitis. Radiation Dose CTDIVOL = (mGy): DLP = 707.67 (mGy-cm)
[2021-03-10 02:18] LABS: Basophils % 0.2 %; Eosinophils # 0.1 10^3/uL (0.0-0.8); Eosinophils % 0.6 %; Hematocrit 38.5 % (37.0-47.0); Hemoglobin 12.6 g/dL (11.5-15.3); Lymphocytes # 1.2 10^3/uL (0.8-4.8); Lymphocytes % 9.9 %; Mean Corpuscular HGB Conc 32.7 g/dL (30.0-36.0); Mean Corpuscular Volume 82.6 fl (81-99); Mean Platelet Volume 11.1 fL (7.4-10.4); Monocytes # 1.2 10^3/uL (0.2-0.9); Monocytes % 9.2 %; Neutrophils # 10.05 10^3/uL (1.8-7.7); Neutrophils % 79.9 %; Nucleated Red Blood Cells % 0 %; Platelet Count 283 10^3/cmm (130-400); Red Blood Count 4.66 10^6/uL (4.1-5.3); Red Cell Distribution Width 22.7 % (12.1-15.1); White Blood Count 12.6 10^3/uL (4.0-10.0)
[2021-03-10 02:25] LABS: INR 1.16 (0.8-1.2)
[2021-03-10 02:26] LABS: Partial Thromboplastin Time 26.1 SECONDS (23.9-36.7)
[2021-03-10 02:30] LABS: Alanine Aminotransferase 6 U/L (0-33); Albumin Level 3.5 g/dL (3.5-5.2); Alkaline Phosphatase 65 IU/L (35-105); Anion Gap 20.1 (5-19); Aspartate Amino Transferase 11 U/L (0-32); Blood Urea Nitrogen 34 mg/dL (8-23); C Reactive Protein 39.5 mg/L (0.0-4.9); Calcium 8.9 mg/dL (8.5-10.5); Carbon Dioxide 21 mmol/L (22-29); Chloride 99 mmol/L (98-107); Glomerular Filtration Rate 158.3 mL/min (90-130); Glucose 105 mg/dL (65-115); Osmolality Calculated 290 mOsm/kg (285-295); Potassium 4.1 mmol/L (3.5-5.1); Sodium 136 mmol/L (136-145); Total Bilirubin 0.3 mg/dL (0.15-1.2); Total Protein 6.5 g/dL (6.6-8.7)
[2021-03-10 02:35] LABS: Add Urine Microscopic? YES; Bilirubin Urine 1+ (Negative); Blood Urine 2+ (Negative); Glucose Urine UA Norm (Normal); Ketones Urine 3+ (Negative); Leukocyte Esterase Urine Negative (Negative); Nitrate Urine Negative (Negative); Protein Urine Trace (Negative); Urine Color Yellow (Yellow); Urobilinogen Urine 1 mg/dL (Negative); pH Urine 5 (5-7)
[2021-03-10 02:40] LABS: Add Urine Culture? Yes; Bacteria Urine 2+ /hpf; Mucus Urine 3+ /hpf; RBC Urine 15-25 /hpf (0-2); Squamous Epithelial Cell Urine 0-4 /hpf (0-5); WBC Urine 0-4 /hpf (0-5)
[2021-03-10 02:58] LABS: Lactate (Lactic Acid level) 1.6 mmol/L (0.5-2.2)
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
[2021-03-10] MEDS: iohexol 300 mg/mL 100 mL Btl IV (03:09)
--- NOTE | 2021-03-10 04:22 | XRR_ITS ---
PROCEDURE INFORMATION: Exam: XR Chest Exam date and time: 03/10/2021 4:22 AM Age: 70 years old Clinical indication: Shortness of breath; Additional info: SOB wheezing TECHNIQUE: Imaging protocol: XR of the chest. Views: 1 view. COMPARISON: CR XR chest 1V portable [id number] 09/17/2020 11:32 AM FINDINGS: Lungs: The lungs are somewhat hyperinflated with increased interstitial markings, likely representing COPD. Bibasilar atelectasis. No evidence of focal consolidation to suggest pneumonia. Pleural spaces: Unremarkable. No pleural effusion. No pneumothorax. Heart/Mediastinum: Stable cardiomediastinal silhouette. Hiatal hernia noted. Bones/joints: Unremarkable. XR/XR chest 1V portable [id number] IMPRESSION: No evidence of focal consolidation. COPD changes.
--- NOTE | 2021-03-10 04:36 | ECG_ITS ---
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: : 1950 Requested By: Ludwin Harris Order Number: [id number] Ashley MD: ALEXSANDRA HACKETT Measurements Intervals [place] Rate: 122 P: PA: QRS: 266 QRSD: 85 T: 92 QT: 338 QTc: 482 Interpretive Statements Sinus TACHYCARDIA RIGHT AXIS DEVIATION [QRS AXIS > 100] Compared to ECG 10/05/2020 09:49:45 Right-axis deviation now present Sinus tachycardia no longer present Atrial abnormality no longer present ST (T wave) deviation no longer present Electronically Signed On 03-10-2021 15:03:16 CDT by ALEXSANDRA HACKETT [id number]
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
[2021-03-10] MEDS: pantoprazole 40 mg SDV 80 MG IVP (04:49)
[2021-03-10] MEDS: cetacaine Spray 5 gm Can 1 SPRAY TOPICAL (04:52)
[2021-03-10] MEDS: piperacillin-tazobactam 3.375 GM in sodium chloride 0.9% (plus) 50 ML IV (05:45)
[2021-03-10] MEDS: lactated ringers 1,000 ML 75 ML IV ×2 (05:51→15:00)
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
[2021-03-10 06:12] LABS: Valproic Acid Level 37.9 ug/mL (50-100)
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
--- NOTE | 2021-03-10 09:58 | PM.OP2 ---
Brief Operative Note: Date of procedure: 03/10/21 Pre-op diagnosis: cecal volvulus Post-op diagnosis: same Procedure Done: Exploratory laparotomy; partial colectomy Surgeon: Antwan Clancy Estimated blood loss (mL): 25 Complications: None Post-op Plan: Clear liquid diet, admit to ICU Condition: critical Disposition: ICU Coding Level of Care Code Acute Tile Layer Supervisor for Salud Pickering
--- NOTE | 2021-03-10 10:00 | ANE.PACU2 ---
Inpatient post-anesthesia follow up: Airway intact: Yes Vital signs: Temperature 98.9 F Pulse Rate [Monito r] 124 Pulse Rate 78 Respiratory Rate 24 Blood Pressure [Ri ght Arm] 115/84 Blood Pressure 114/70 Pulse Oximetry 94 Oxygen Delivery Me thod Room Air Oxygen Flow Rate 6 Fraction of Inspir ed Oxygen Hydration adequate: Yes Nausea and vomiting: No Pain level: 1 Mental status: Baseline
--- NOTE | 2021-03-10 10:00 | PM.OP ---
Operative Report Date of procedure: March 10, 2021 Pre-op Diagnosis: Cecal volvulus Post-op diagnosis: same Procedure Done: Exploratory laparotomy; partial colectomy Specimens removed/disposition: Cecum and terminal ileum Surgeon: Antwan Clancy Anesthesia: General Estimated blood loss (mL): 25 IV fluids: See anesthesia record Urine output: See anesthesia record Complications: None Findings: Cecal volvulus with markedly distended cecum and several areas of focal ischemia but no evidence of perforation or necrosis Condition: critical Disposition: ICU Brief History: 70-year-old female who presented with several day history of nausea vomiting abdominal pain. She was found to have cecal volvulus on CT scan and was taken the OR for exploratory laparotomy and resection of the volvulus. Procedure: Informed consent was obtained from the patient and her daughter who has power of litigation attorney associate. The patient was brought from the preoperative holding area to the OR and placed supine on the operating table. General endotracheal anesthesia was induced. Patient was prepped and draped in usual sterile fashion. A timeout was performed prior to start the procedure. Midline incision was made from just below the xiphoid to just below the umbilicus. This was made sharply. The underlying tissue was dissected down to the level of fascia using cautery and the cautery was then used to incise the fascia. The peritoneum was grasped and incised sharply and then the abdominal cavity was entered. Upon entering the Abdominal cavity a markedly dilated cecum was encountered confirming the diagnosis of cecal volvulus. The did appear to be a few bands that were stretching across the abdomen and down around the area of the cecum which may have contributed to the volvulus. These were lysed sharply. The cecum and the right colon was then freed from its peritoneal attachments along the white line of Toldt using cautery. Once we had adequate length on the right colon we were able to identify that the majority of the dilation was isolated to the cecum and therefore the plan was to perform a limited right hemicolectomy. The proximal resection site was identified and the terminal ileum and this was transected using a ELIS stapler with blue load. Our distal resection site was identified just proximal to the right colic. This was transected using a ELIS stapler. The mesentery was divided between clamps and the and the tissue ligated using 0 silk. Specimen was passed off for pathology. There was good bleeding noted at each of the staple lines with healthy appearing bowel with no evidence of ischemia. A stapled [id number] functional end-to-end anastomosis was then performed using a 75 mm ELIS stapler with a blue load. Enterotomies were made on both the small bowel and the colon and the staple was inserted and fired along the antimesenteric border creating the common channel. The common channel was inspected no bleeding was noted within the channel. There was good bleeding from the area of the common enterotomy. This was then grasped with Allis clamps and another ELIS staple load was fired across the common enterotomy closing the common enterotomy. The corners of our staple line at that area were protected using 3-0 silk sutures in a Lembert fashion. A crotch stitch was placed at the distal portion of the anastomosis using a 3-0 silk. The mesenteric defect was closed using a running 3-0 silk. Hemostasis was assured. The abdomen was irrigated with 3 L of normal saline. Bowel was placed back in the abdomen with no evidence of torsion and what appeared to be good blood supply to the anastomosis. The abdominal wall was reapproximated using a running 0 PDS looped. Exparel was infused in the fascia and in the subcu. Skin was reapproximated using truman Patient tolerated the procedure well was extubated taken to the ICU for management. All counts were correct at the end the procedure.
[2021-03-10] MEDS: pantoprazole 40 mg SDV IVP ×2 (11:08→21:07)
[2021-03-10] MEDS: fentaNYL 50 mcg/mL INJ 2mL 25 MCG IVP ×3 (11:18→23:58)
--- NOTE | 2021-03-10 11:41 | P.PN_ITS ---
Subjective Subjective: Interval history: Patient was seen and examined.seen resting comfortably in bed. Medications: Reviewed: Yes Vitals/I&O/Wt Last Vital Signs Temp 99 F 03/10/21 06:45 Pulse 99 03/10/21 10:45 Resp 17 03/10/21 10:45 BP 147/91 03/10/21 10:45 Pulse Ox 99 03/10/21 10:45 03/09/21 03/10/21 03/10/21 22:59 06:59 14:59 Intake Total 1000 / 1000 50 / 50 Balance 1000 / 1000 50 / 50 Weight last 48 hrs Weight 52.163 kg Weight 52.163 kg Physical Exam Narrative: EXAM NARRATIVE: Alert and awake HENMT: COMMON NORMALS: normocephalic and atraumatic HEAD & SCALP: normocep halic and atraumatic Resp: COMMON NORMALS: clear to auscultation bilaterally EFFORT & INSPECTION: Yes symmetric chest movement AUSCULTATION: clear to auscultation bilaterally Cardio: COMMON NORMALS: regular rate, regular rhythm, S1 normal heart sound present, S2 normal heart sound present, No gallops present (Cardio), No murmurs present (Cardio), No rub (Cardio) and Peripheral pulses 2+ throughout RATE: regular rate RHYTHM: regular rhythm HEART SOUNDS: S1 normal heart sound present and S2 normal heart sound present PERIPHERAL PULSES: Peripheral pulses 2+ throughout GI: AUSCULTATION: Yes normoactive bowel sounds RECTAL EXAM: deferred OTHER: Midline incision clean and Inatct Extremity: COMMON NORMALS: no clubbing, cyanosis or edema and no pedal edema Urinary Catheter Management^: Lee: Cath Placed During This Visit: yes Urinary Catheter Date of Insertion: 03/10/21 Urinary Catheter Time of Insertion: 05:07 Data : 03/10/21 02:04 03/10/21 02:04 Micro: Microbiology 03/10/21 05:42 Blood Culture - Preliminary Blood SPECIMEN COLLECTED 03/10/21 05:27 Blood Culture - Preliminary Blood SPECIMEN COLLECTED A&P Assessment and plan (1) Cecal volvulus: S/P Exploratory laparotomy; partial colectomy. Surgery on Board Status: Acute (2) BMI less than 19,adult: Status: Acute (3) Protein calorie malnutrition: Chronic, albumin improved from previous values Status: Chronic Qualifiers: Protein-calorie malnutrition severity: unspecified severity Qualified Code(s): E46 - Unspecified protein-calorie malnutrition (4) Asthma: Chronically on scheduled duo nebs or Combivent and as needed albuterol Status: Acute Qualifiers: Asthma severity: unspecified severity Asthma persistence: unspecified Asthma complication type: unspecified Qualified Code(s): J45.909 - Unspecified asthma, uncomplicated (5) Parkinson disease: Sinemet will resumed Status: Chronic (6) Contracture of multiple joints: Non ambulatory at baseline, dependent on ADLs Status: Acute (7) Rheumatoid arthritis: Status: Chronic Qualifiers: Rheumatoid arthritis location: multiple sites Rheumatoid factor presence: unspecified presence Qualified Code(s): M06.9 - Rheumatoid arthritis, unspecified (8) Anxiety: and depresssion, history of francia, on chronic depakote Status: Acute Additional A&P Information Code Status :Full code DVT PPX: On SCDS Attestations Medical Necessity Statement*: Patient needs to be in hospital for the management of Cecal Volvulus s/p Exploratory laparotomy; partial colectomy. Coding Level of Care Code Acute Training Coordinator for g Fwd Diagnoses Cecal volvulus K56.2 BMI less than 19,adult Z68.1 Protein calorie malnutrition E46 Protein-calorie malnutrition severity: unspecified severity Asthma J45.909 Asthma severity: unspecified severity Asthma persistence: unspecified Asthma complication type: unspecified Parkinson disease G20 Contracture of multiple joints M24.50 Rheumatoid arthritis M06.9 Rheumatoid arthritis location: multiple sites Rheumatoid factor presence: unspecified presence Anxiety F41.9
[2021-03-10] MEDS: ipratropium-albuterol 3 mL Neb INHALATION ×2 (15:20→19:59)
--- NOTE | 2021-03-10 15:21 | PC.NURSE ---
frequent reposition has multiple contractures of all extremities and generalized tremors noted ..
--- NOTE | 2021-03-10 15:24 | PC.RESP ---
RT Shift Note Frequent safety and respiratory rounds continue. Orders completed as indicated. Patient monitored pre and post treatments throughout shift. Patient [Did.] tolerate treatments appropriately. Condition [DidNotChange]. Patient and/or fundraising sale representative educated on respiratory treatment and medications. Patient and/or fundraising sale representative [verbalized understanding]. Will continue to monitor patient progress.
[2021-03-10] MEDS: acetaminophen 1,000 MG/100 ML PIGGYBACK 400 MG IV (17:38)
--- NOTE | 2021-03-10 18:28 | NUR.SHIFT ---
Shift Note Frequent safety and comfort rounds continue. Orders and/or nursing care completed as indicated. Patient monitored for response to intervention and treatment(s). Education provided includes[]. Patient and/or business center representative [ResponseToTeaching]. Will continue to monitor. from surgery today abdomen dressing intact no drainage noted , Very contractures noted all extrimities and joints. frequent reposition done small amt clear liquid po taken and frequent oral care.
[2021-03-10] MEDS: lactated ringers 500 ML 999 ML IV (21:08)
[2021-03-10] MEDS: LORazepam 2 mg/mL INJ 1 mL 0.5 MG IVP (23:22)
[2021-03-11] VITALS (24 sets, daily range): BP systolic 107–146; BP diastolic 61–106; PULSE 78–128; RESP 14–24; TEMP 36.8–37.2; O2SAT 87–100; BMI 18.9
[2021-03-11] MEDS: acetaminophen 1,000 MG/100 ML PIGGYBACK 400 MG IV ×2 (02:55→09:37)
[2021-03-11] MEDS: lactated ringers 1,000 ML 110 ML IV (03:00)
[2021-03-11] MEDS: ipratropium-albuterol 3 mL Neb INHALATION ×4 (03:23→20:37)
[2021-03-11 04:21] LABS: Basophils % 0.1 %; Eosinophils % 0.1 %; Hematocrit 32.3 % (37.0-47.0); Hemoglobin 10.2 g/dL (11.5-15.3); Lymphocytes # 1.4 10^3/uL (0.8-4.8); Lymphocytes % 9.6 %; Mean Corpuscular HGB Conc 31.6 g/dL (30.0-36.0); Mean Corpuscular Hemoglobin 27.6 pg (28.0-34.0); Mean Corpuscular Volume 87.5 fl (81-99); Monocytes # 1.8 10^3/uL (0.2-0.9); Monocytes % 13.1 %; Neutrophils # 10.79 10^3/uL (1.8-7.7); Neutrophils % 76.9 %; Nucleated Red Blood Cells % 0 %; Platelet Count 187 10^3/cmm (130-400); Red Blood Count 3.69 10^6/uL (4.1-5.3); Red Cell Distribution Width 22.7 % (12.1-15.1)
[2021-03-11 04:53] LABS: Blood Urea Nitrogen 19 mg/dL (8-23); Calcium 7.8 mg/dL (8.5-10.5); Carbon Dioxide 22 mmol/L (22-29); Chloride 105 mmol/L (98-107); Glomerular Filtration Rate 352.2 mL/min (90-130); Glucose 76 mg/dL (65-115); Osmolality Calculated 287 mOsm/kg (285-295); Sodium 138 mmol/L (136-145)
[2021-03-11] MEDS: enoxaparin 40 mg/0.4 mL Syringe SUBCUT (05:51)
--- NOTE | 2021-03-11 06:32 | PC.NURSE ---
Shift Note Frequent safety and comfort rounds continue. Orders and/or nursing care completed as indicated. Patient monitored for response to intervention and treatment(s). Education provided includes surgical incision. Patient requires reinforcement teaching. Lee catheter drained 400 mls of dark yellow urine all evening. Patient remains on room air and is confused. Abdomen has a surgical incision, dressing is dry and intact. Will continue to monitor.
--- NOTE | 2021-03-11 08:00 | PC.NURSE ---
Upon shift change assessment a pressure injury was noted on the left ankle and left heel. Put on heel protectors and pillow between legs.
--- NOTE | 2021-03-11 08:30 | PC.CHAP ---
Pastoral Care Encounter/Spiritual Assessment Type of Contact [] Declined compensation and benefits analyst visit [] Patient/Family/Request visit [] Outpatient visit [] Follow-up visit [] Physician referral [] Code/Alert [x] Routine visit [] Staff referral [] Actively dying [] Patient sleeping [] Family support [] [] Out of room [] Palliative care [] [] Receiving care in room [] Pre-surgical visit [] Trauma [] Long length of stay [x] ICU visit [] Other: Relational/Emotional Strength [] Patient feels connected with others/family/visitors/staff [] Distress [] Loneliness/isolation [] Abandonment Spirituality of Patient [] Person of Martina [] Attends Episcopalian of their Martina [] Believes in Prayer [] Reads Bible or Rastafarian materials [] There are Spiritual issues to be addressed Clinical Education Assistant Interventions [x] Prayer [] Active listening [] Non-anxious presence [] Spiritual/emotional support [] Crisis/trauma care [] Spiritual counseling [] Bereavement support [] Provided bereavement packet [] Provided Bible/devotional materials [] Provided toy/stuffed animal, coloring book to patient or family member [] Provided Communion [] Anointing/[place] [] Salvation [x] Completed spiritual assessment [] Other: Impact on Illness or Injury [] Angry [] Fearful [] Anxious [] Often cries [] Exhaustion [] Unable to work [] Unable to attend catholic [] Unable to walk/stand [] Unable to read [] Unable to drive [] Unable to eat/drink [] Unable to sleep [] Unable to be with family [] Patient intubated [] Other: Summary Time spent with patient
[2021-03-11] MEDS: pantoprazole 40 mg SDV IVP (09:36)
--- NOTE | 2021-03-11 11:22 | P.PN_ITS ---
Subjective Subjective: Interval history: No acute events overnight. Patient is much more alert this morning. She is complaining of minimal abdominal tenderness. She denies flatus or bowel movements. Medications: Reviewed: Yes Vitals/I&O/Wt Last Vital Signs Temp 98.3 F 03/11/21 10:00 Pulse 96 03/11/21 10:00 Resp 22 H 03/11/21 10:00 BP 128/78 03/11/21 10:00 Pulse Ox 97 03/11/21 10:00 03/10/21 03/11/21 03/11/21 22:59 06:59 14:59 Intake Total 1936.25 / 3286.25 950 / 4236.25 750.833 / 750.833 Output Total 400 / 625 400 / 1025 125 / 125 Balance 1536.25 / 2661.25 550 / 3211.25 625.833 / 625.833 Weight last 48 hrs Weight 117 lb 9 oz Weight 115 lb Weight 115 lb Physical Exam Const: COMMON NORMALS: no acute distress and patient oriented x3 Resp: COMMON NORMALS: normal respiratory effort Cardio: COMMON NORMALS: regular rate and regular rhythm RATE: regular rate RHYTHM: regular rhythm GI: OTHER: Abdomen is soft, appropriately tender to palpation, hypoactive bowel sounds, incision is clean dry and intact Neuro: COMMON NORMALS: patient oriented x3 Urinary Catheter Management^: Lee: Cath Placed During This Visit: yes Reason for Continuing Indwelling Catheter: Accurate Measurement of Urinary Output in Critically Ill Patients Urinary Catheter Date of Insertion: 03/10/21 Urinary Catheter Time of Insertion: 05:07 Data : 03/11/21 03:37 03/11/21 03:37 Micro: Microbiology 03/10/21 02:18 Urine Culture - Preliminary Urine Catheterized 03/10/21 05:42 Blood Culture - Preliminary Blood NEGATIVE TO DATE 03/10/21 05:27 Blood Culture - Preliminary Blood NEGATIVE TO DATE A&P Assessment and plan (1) Cecal volvulus: 70-year-old female postop day 1 from exploratory laparotomy and partial colectomy for cecal volvulus. Patient is doing well with no current issues. She is stable for transfer from the ICU. Plan for advancement of diet as tolerated. We are just awaiting bowel function. Status: Acute Attestations Medical Necessity Statement*: Christelle Matthew's hospital stay will require greater than 2 midnights for large bowel obstruction related to cecal volvulus and need for emergent surgery and recovery. Coding Level of Care Code Acute Restaurant Area Director for Chg Fwd Diagnoses Cecal volvulus K56.2
--- NOTE | 2021-03-11 13:36 | PM.PN ---
Subjective Subjective: Interval history: Patient was seen in the ICU, I had a chance to talk with general surgery as well, patient has had no bowel movement yet, she is more awake and alert today she is oriented as well to time place and person, she gave me permission to discuss her condition with her daughter, we will transfer her out of ICU, hemodynamically stable, urine catheter draining clear urine General surgery also talked with her daughter to explain the etiology and future complications +2 L balance Decrease her fluids to 75 mils per hour down from 110 mL/h No bowel movement White count 14 hemoglobin 10 Has been afebrile since surgery Vitals/I&O/Wt Last Vital Signs Temp 99 F 03/11/21 12:00 Pulse 96 03/11/21 12:00 Resp 18 03/11/21 12:00 BP 124/74 03/11/21 12:00 Pulse Ox 97 03/11/21 12:00 03/10/21 03/11/21 03/11/21 22:59 06:59 14:59 Intake Total 1936.25 / 3286.25 950 / 4236.25 868.833 / 868.833 Output Total 400 / 625 400 / 1025 125 / 125 Balance 1536.25 / 2661.25 550 / 3211.25 743.833 / 743.833 Weight last 48 hrs Weight 53.325 kg Weight 52.163 kg Weight 52.163 kg Physical Exam Narrative: EXAM NARRATIVE: Patient was in her bed when I entered the room She open her eyes to verbal commands She was awake and alert, time place and person oriented Extremity contractures noted Abdominal surgical wound looks okay without any signs of infection or cellulitis, No focal deficit EOMI, PERRLA Patient has stage I heel ulcer no sacral ulcer reported by the nurse Urinary Catheter Management^: Lee: Cath Placed During This Visit: yes Reason for Continuing Indwelling Catheter: Accurate Measurement of Urinary Output in Critically Ill Patients Urinary Catheter Date of Insertion: 03/10/21 Urinary Catheter Time of Insertion: 05:07 Data : 03/11/21 03:37 03/11/21 03:37 Micro: Microbiology 03/10/21 02:18 Urine Culture - Preliminary Urine Catheterized 03/10/21 05:42 Blood Culture - Preliminary Blood NEGATIVE TO DATE 03/10/21 05:27 Blood Culture - Preliminary Blood NEGATIVE TO DATE A&P Assessment and plan (1) Contracture of multiple joints: Status: Acute (2) Anxiety: Status: Acute (3) Cecal volvulus: Status: Acute (4) Constipation: Status: Acute (5) BMI less than 19,adult: Status: Acute (6) Large hiatal hernia: Status: Chronic (7) Protein calorie malnutrition: Status: Chronic Qualifiers: Protein-calorie malnutrition severity: unspecified severity Qualified Code(s): E46 - Unspecified protein-calorie malnutrition (8) Parkinson disease: Status: Chronic (9) Rheumatoid arthritis: Status: Chronic Qualifiers: Rheumatoid arthritis location: multiple sites Rheumatoid factor presence: unspecified presence Qualified Code(s): M06.9 - Rheumatoid arthritis, unspecified Additional A&P Information Postop day 1 status post exploratory laparotomy partial colectomy for cecal volvulus Etiology most likely is related to constipation excessive stool burden Pathology report is pending Transfer her out of ICU Will advance her diet once she starts passing flatus and have bowel movement Afebrile Decrease her IV fluid rate to 75 remove her hour she is in 2 L positive balance Once she is able to tolerate diet we will plan to discharge her back to residential had questions which were answered by general surgery in the morning I also talked with the surgeon and discussed plan of care Parkinson's disease: Continue Sinemet Protein calorie malnourishment we will follow up with dietary recommendations once she is able to tolerate diet Multiple joint contractures secondary to history of rheumatoid arthritis Full code Start DVT prophylaxis with Lovenox Disposition: Plan to send her back to her facility once she is able to tolerate diet Attestations Medical Necessity Statement*: Transfer out of ICU Time Spent in Patient Care: 16 - 35 minutes Coding Level of Care Code Acute Play Therapist for g Fwd Diagnoses Contracture of multiple joints M24.50 Anxiety F41.9 Cecal volvulus K56.2 Constipation K59.00 BMI less than 19,adult Z68.1 Large hiatal hernia K44.9 Protein calorie malnutrition E46 Protein-calorie malnutrition severity: unspecified severity Parkinson disease G20 Rheumatoid arthritis M06.9 Rheumatoid arthritis location: multiple sites Rheumatoid factor presence: unspecified presence
--- NOTE | 2021-03-11 13:46 | PC.NURSE ---
Patient transfer report faxed and verbal transfer report given to Luly. Person to notify called and voicemail left informing of new room, room 266.
[2021-03-11] MEDS: lactated ringers 1,000 ML 75 ML IV (14:07)
[2021-03-11] MEDS: sennosides-docusate Tablet 2 TAB PO (17:40)
[2021-03-11] MEDS: ondansetron 2 mg/ML SDV 2 mL 4 MG IVP (18:13)
--- NOTE | 2021-03-11 18:52 | PC.NURSE ---
Report to Kasey NEWSOME at this time
[2021-03-11] MEDS: LORazepam 2 mg/mL INJ 1 mL 0.5 MG IVP (20:32)
[2021-03-12] VITALS (12 sets, daily range): BP systolic 110–146; BP diastolic 66–72; PULSE 61–103; RESP 16–20; TEMP 36.4–37.4; O2SAT 91–98
[2021-03-12] MEDS: ondansetron 2 mg/ML SDV 2 mL 4 MG IVP (01:34)
[2021-03-12] MEDS: ipratropium-albuterol 3 mL Neb INHALATION ×4 (02:44→20:03)
[2021-03-12 03:48] LABS: Basophils % 0.2 %; Eosinophils # 0.1 10^3/uL (0.0-0.8); Hematocrit 27.6 % (37.0-47.0); Hemoglobin 9.1 g/dL (11.5-15.3); Lymphocytes # 0.9 10^3/uL (0.8-4.8); Lymphocytes % 10.4 %; Mean Corpuscular Hemoglobin 27.3 pg (28.0-34.0); Mean Corpuscular Volume 82.9 fl (81-99); Mean Platelet Volume 10.9 fL (7.4-10.4); Monocytes % 11.7 %; Neutrophils # 6.55 10^3/uL (1.8-7.7); Neutrophils % 76.4 %; Nucleated Red Blood Cells % 0 %; Platelet Count 182 10^3/cmm (130-400); Red Blood Count 3.33 10^6/uL (4.1-5.3); White Blood Count 8.6 10^3/uL (4.0-10.0)
[2021-03-12 04:15] LABS: Anion Gap 13.9 (5-19); Blood Urea Nitrogen 13 mg/dL (8-23); Calcium 7.6 mg/dL (8.5-10.5); Carbon Dioxide 23 mmol/L (22-29); Chloride 102 mmol/L (98-107); Glomerular Filtration Rate 220.6 mL/min (90-130); Glucose 85 mg/dL (65-115); Osmolality Calculated 281 mOsm/kg (285-295); Sodium 136 mmol/L (136-145)
[2021-03-12 04:31] LABS: Potassium 2.9 mmol/L (3.5-5.1)
[2021-03-12] MEDS: enoxaparin 40 mg/0.4 mL Syringe SUBCUT (05:15)
--- NOTE | 2021-03-12 05:42 | PC.NURSE ---
SHIFT SUMMARY Has rested for intervals. IV infusing without difficulty. Urine per Lee. Has been repositioned several times. Prefers to lay on left side and asks to be turned back to that side. Has contractures of extremities and tremors..Heel boots to feet. Has SCD's on but assisted through night asked for them to be removed. Says were making her legs hurt. Received dose of IV Ativan X1 for restlessness/anxiety. Also received dose of IV Zofran X1 for nausea c/o. No vomiting. Dressing to midline incision C&D. Has been heard passing flatus when repositioned. K+ 2.9 this am and will receive po K+
[2021-03-12] MEDS: potassium chloride ER 20 mEq Tablet 60 MEQ PO (06:13)
[2021-03-12] MEDS: pantoprazole 40 mg SDV IVP (08:50)
[2021-03-12] MEDS: sennosides-docusate Tablet 2 TAB PO ×2 (08:50→17:48)
[2021-03-12] MEDS: magnesium oxide 400 mg tablet PO ×2 (08:52→17:48)
[2021-03-12] MEDS: lactated ringers 1,000 ML 50 ML IV (08:53)
--- NOTE | 2021-03-12 09:59 | CT_ITS ---
WS: [id number] CT ABDOMEN PELVIS TECHNIQUE: Contrast-enhanced CT of the abdomen and pelvis with coronal and sagittal reformatted image s. CLINICAL INFORMATION: post op pain COMPARISON: CT 03/2021 DLP: 1702.[address] scans at [facility] use at least one of these dose optimization techniques: automated e xposure control; mA and/or kV adjustment per patient size (includes targeted exams where dose is matc hed to clinical indication); or iterative reconstruction. FINDINGS: Postoperative changes are new from the prior examination abdominal laparotomy reduction of the previo usly described cecal volvulus. Postoperative changes in the right lower quadrant. Mild dilatation of fluid-filled small bowel loops. No evidence of high-grade obstruction. Colon appears decompressed. Sc attered locules of free air in the abdomen and upper abdomen consistent with recent postoperative sho nges. Large esophageal hiatal hernia with partial intrathoracic stomach unchanged. Tiny right pleural effusion with subsegmental atelectasis right lower lobe. Normal liver. Cholelithiasis. Normal spleen. Adrenal glands are normal. Normal renal parenchymal enha ncement. No hydronephrosis. Small amount of free fluid in the pelvis. Lee catheter. Fibroid uterus. CT/CT abdomen pelvis w con* [id number] IMPRESSION: 1. Recent interval postoperative changes abdominal laparotomy for cecal volvul us reduction. 2. Postoperative changes right lower quadrant. 3. Fluid distended loops of small bowel. No evidence of high-grade obstruction . Colon appears decompressed. 4. Scattered locules of free air in the abdomen compatible with postoperative changes. 5. Large esophageal hiatal hernia. 6. Small amount of free fluid in the pelvis. 7. Lee catheter.
--- NOTE | 2021-03-12 10:13 | PC.NURSE ---
Patient to CT at this time.
[2021-03-12] MEDS: iohexol 300 mg/mL 100 mL Btl IV (10:19)
[2021-03-12] MEDS: magnesium hydroxide 30 mL UDC 15 ML PO (10:38)
--- NOTE | 2021-03-12 11:52 | P.PN_ITS ---
Subjective Subjective: Interval history: Patient was seen and examined this morning patient was endorsing left upper quadrant pain, passage of excessive flatus however no bowel movement CT abdomen pelvis with contrast was requested this morning She has stayed afebrile, no leukocytosis, Surgical site without any drainage COVID-19 1 today fluids running at 50 mL/h CT/CT abdomen pelvis w con* [id number] IMPRESSION: 1. Recent interval postoperative changes abdominal laparotomy for cecal volvulus reduction. 2. Postoperative changes right lower quadrant. 3. Fluid distended loops of small bowel. No evidence of high-grade obstruction. Colon appears decompressed. 4. Scattered locules of free air in the abdomen compatible with postoperative changes. 5. Large esophageal hiatal hernia. 6. Small amount of free fluid in the pelvis. 7. Lee catheter. Vitals/I&O/Wt Last Vital Signs Temp 98.7 F 03/12/21 11:02 Pulse 68 03/12/21 11:02 Resp 17 03/12/21 11:02 BP 142/70 03/12/21 11:02 Pulse Ox 92 03/12/21 11:02 03/11/21 03/12/21 03/12/21 22:59 06:59 14:59 Intake Total 366.25 / 1584.250 120 / 1704.250 733.75 / 733.75 Output Total 225 / 350 350 / 700 Balance 141.25 / 1234.250 -230 / 1004.250 733.75 / 733.75 Weight last 48 hrs Weight 49.668 kg Weight 53.325 kg Physical Exam Narrative: EXAM NARRATIVE: Patient was awake and alert chronic contracture of upper and lower extremities No active tremors She was able to tell me that her left upper quadrant was tender on deep palpation no active rigidity guarding or severe signs of peritonitis her abdomen is soft, nondistended Bowel sounds are sluggish Surgical wound without any active drainage no sign of cellulitis Bilateral diminished breath sounds Saturating well on room air Urinary Catheter Management^: Lee: Cath Placed During This Visit: yes Reason for Continuing Indwelling Catheter: Other Urinary Catheter Date of Insertion: 03/10/21 Urinary Catheter Time of Insertion: 05:07 Data : 03/12/21 02:30 03/12/21 02:30 Micro: Microbiology 03/10/21 02:18 Urine Culture - Final Urine Catheterized A&P Assessment and plan (1) Contracture of multiple joints: Status: Acute (2) Rheumatoid arthritis: Status: Chronic Qualifiers: Rheumatoid arthritis location: multiple sites Rheumatoid factor presence: unspecified presence Qualified Code(s): M06.9 - Rheumatoid arthritis, unspecified (3) Anxiety: Status: Acute (4) Asthma: Status: Acute Qualifiers: Asthma severity: unspecified severity Asthma persistence: unspecified Asthma complication type: unspecified Qualified Code(s): J45.909 - Unspecified asthma, uncomplicated (5) Cecal volvulus: Status: Acute (6) BMI less than 19,adult: Status: Acute (7) Constipation: Status: Acute (8) Large hiatal hernia: Status: Chronic (9) Does not walk: Status: Chronic (10) Protein calorie malnutrition: Status: Chronic Qualifiers: Protein-calorie malnutrition severity: unspecified severity Qualified Code(s): E46 - Unspecified protein-calorie malnutrition (11) Parkinson disease: Status: Chronic Additional A&P Information Postop day 2 Patient was complaining of left upper quadrant pain CT abdomen pelvis did not show any acute findings other than distended small bowel without any active signs of obstruction Patient is passing flatus however no active bowel movement Currently on clear liquid diet We will give her a trial of milk of magnesia Status post exploratory laparotomy partial colectomy for cecal volvulus Continue fluids at 30 cc/h now We will discharge her back to [facility] once she starts having a bowel movement Anemia noted no active signs of bleeding I do suspect dilutional anemia, Continue Parkinson's medication For protein calorie malnourishment : We will request diet consult Full code Lovenox DVT prophylaxis Discharge back to SNF once able to tolerate diet and have bowel movement Attestations Medical Necessity Statement*: Continue medical management Time Spent in Patient Care: 16 - 35 minutes Coding Level of Care Code Acute New Car Inspector for Chg Fwd Diagnoses Contracture of multiple joints M24.50 Rheumatoid arthritis M06.9 Rheumatoid arthritis location: multiple sites Rheumatoid factor presence: unspecified presence Anxiety F41.9 Asthma J45.909 Asthma severity: unspecified severity Asthma persistence: unspecified Asthma complication type: unspecified Cecal volvulus K56.2 BMI less than 19,adult Z68.1 Constipation K59.00 Large hiatal hernia K44.9 Does not walk R68.89 Protein calorie malnutrition E46 Protein-calorie malnutrition severity: unspecified severity Parkinson disease G20
--- NOTE | 2021-03-12 13:35 | P.PN_ITS ---
Subjective Subjective: Interval history: Postop day #2 status post laparotomy and partial colectomy for cecal volvulus. Patient conversing with me and complains of some modest abdominal tenderness though there is no distention. Denies nausea or vomiting. Vitals/I&O/Wt Last Vital Signs Temp 98.7 F 03/12/21 11:02 Pulse 68 03/12/21 11:02 Resp 17 03/12/21 11:02 BP 142/70 03/12/21 11:02 Pulse Ox 92 03/12/21 11:02 03/11/21 03/12/21 03/12/21 22:59 06:59 14:59 Intake Total 366.25 / 1584.250 120 / 1704.250 733.75 / 733.75 Output Total 225 / 350 350 / 700 Balance 141.25 / 1234.250 -230 / 1004.250 733.75 / 733.75 Weight last 48 hrs Weight 109 lb 8 oz Weight 117 lb 9 oz Physical Exam GI: OTHER: Laparotomy incision line is clean, dry, and intact. Dwarf are in position. Incision line was pain with Betadine and redressed with bordered gauze. Still with substantially hypoactive bowel sounds though there is no rebound tenderness. Urinary Catheter Management^: Lee: Cath Placed During This Visit: yes Reason for Continuing Indwelling Catheter: Other Urinary Catheter Date of Insertion: 03/10/21 Urinary Catheter Time of Insertion: 05:07 Data : 03/12/21 02:30 03/12/21 02:30 Micro: Microbiology 03/10/21 02:18 Urine Culture - Final Urine Catheterized A&P Assessment and plan (1) Status post partial resection of colon: Updated redo status post partial colon resection secondary to cecal volvulus. She appears to be progressing well. Does complain of some breathing difficulties though her lung sounds are clear. She does receive scheduled nebulizer treatments. Incision line is clean, dry, and intact. On-call general surgeon not available for exam today though I feel she is doing well. I have notified the [facility] general surgical team. I concur with advancing diet as tolerated in conjunction with the return of bowel sounds. Status: Acute Attestations Medical Necessity Statement*: Status post resection for cecal volvulus. Postop day #2 Time Spent in Patient Care: 16 - 35 minutes Coding Level of Care Code Acute Dental Appliance Repairer for Chg Fwd Diagnoses Status post partial resection of colon Z90.49
[2021-03-12] MEDS: LORazepam 2 mg/mL INJ 1 mL 0.5 MG IVP ×2 (14:05→22:05)
[2021-03-12] MEDS: calcium gluconate 0.1 gm/mL 10% SDV 10mL 1 GM IVP (14:06)
--- NOTE | 2021-03-12 19:25 | PC.NURSE ---
Report to Gina DAMON at this time.
[2021-03-13] VITALS (12 sets, daily range): BP systolic 112–133; BP diastolic 67–75; PULSE 71–94; RESP 14–18; TEMP 36.5–37.7; O2SAT 92–97
[2021-03-13 02:30] LABS: Basophils % 0.5 %; Eosinophils # 0.3 10^3/uL (0.0-0.8); Eosinophils % 4.1 %; Hematocrit 27.6 % (37.0-47.0); Hemoglobin 9.2 g/dL (11.5-15.3); Lymphocytes % 14.9 %; Mean Corpuscular HGB Conc 33.3 g/dL (30.0-36.0); Mean Corpuscular Hemoglobin 27.8 pg (28.0-34.0); Mean Corpuscular Volume 83.4 fl (81-99); Mean Platelet Volume 10.6 fL (7.4-10.4); Monocytes # 0.8 10^3/uL (0.2-0.9); Monocytes % 11.8 %; Neutrophils # 4.37 10^3/uL (1.8-7.7); Neutrophils % 68.5 %; Nucleated Red Blood Cells % 0 %; Platelet Count 209 10^3/cmm (130-400); Red Blood Count 3.31 10^6/uL (4.1-5.3); Red Cell Distribution Width 21.5 % (12.1-15.1); White Blood Count 6.4 10^3/uL (4.0-10.0)
[2021-03-13] MEDS: ipratropium-albuterol 3 mL Neb INHALATION ×4 (02:49→20:38)
[2021-03-13 02:55] LABS: Anion Gap 14.4 (5-19); Blood Urea Nitrogen 4 mg/dL (8-23); Carbon Dioxide 26 mmol/L (22-29); Chloride 100 mmol/L (98-107); Glomerular Filtration Rate 352.2 mL/min (90-130); Glucose 114 mg/dL (65-115); Magnesium 1.5 mg/dL (1.7-2.3); Osmolality Calculated 282 mOsm/kg (285-295); Potassium 3.4 mmol/L (3.5-5.1); Sodium 137 mmol/L (136-145)
[2021-03-13] MEDS: enoxaparin 40 mg/0.4 mL Syringe SUBCUT (05:22)
[2021-03-13] MEDS: lactated ringers 1,000 ML 50 ML IV (05:22)
[2021-03-13] MEDS: LORazepam 2 mg/mL INJ 1 mL 0.5 MG IVP ×2 (06:07→17:08)
[2021-03-13] MEDS: magnesium oxide 400 mg tablet PO ×2 (09:40→17:08)
[2021-03-13] MEDS: sennosides-docusate Tablet 2 TAB PO ×2 (09:40→17:09)
[2021-03-13] MEDS: pantoprazole 40 mg SDV IVP (09:45)
--- NOTE | 2021-03-13 10:34 | PC.SOCIAL ---
IMM date IMM updated, initialed, time and dated, pt informed and copy given.
[2021-03-13] MEDS: acetaminophen 500 mg Tablet PO ×2 (13:53→20:42)
--- NOTE | 2021-03-13 13:56 | PM.PN ---
Subjective Subjective: Interval history: Patient requested Tylenol for headache No bowel movement yet She does have sluggish bowel sounds, she tolerated a clear liquid diet, I would go ahead and advance her diet give her glycerin suppository and milk of magnesia Afebrile no leukocytosis no postop complications Lee catheter draining concentrated urine, she is tolerating her diet will turn her fluids off Potassium 3.4 magnesium 1.5 given 1 g mag sulfate Vitals/I&O/Wt Last Vital Signs Temp 99.0 F 03/13/21 11:39 Pulse 92 03/13/21 11:39 Resp 16 03/13/21 11:39 BP 113/72 03/13/21 11:39 Pulse Ox 97 03/13/21 11:39 03/12/21 03/13/21 03/13/21 22:59 06:59 14:59 Intake Total 300 / 1393.75 1000 / 2393.75 292 / 292 Output Total 600 / 600 1300 / 1900 1050 / 1050 Balance -300 / 793.75 -300 / 493.75 -758 / -758 Weight last 48 hrs Weight 46.13 kg Weight 49.668 kg Physical Exam Narrative: EXAM NARRATIVE: Patient left lateral position EOMI, PERRLA Multiple contractures of joints No new neurological deficit S1, S2 no signs of heart failure Abdomen soft mildly tender around surgical site, wound appears healthy with good granulation tissue Lee catheter draining concentrated urine Diminished bilateral breath sounds Urinary Catheter Management^: Lee: Cath Placed During This Visit: yes Reason for Continuing Indwelling Catheter: Acute Urinary Retention or Obstruction Urinary Catheter Date of Insertion: 03/10/21 Urinary Catheter Time of Insertion: 05:07 Data : 03/13/21 02:15 03/13/21 02:15 A&P Assessment and plan (1) Status post partial resection of colon: Status: Acute (2) Rheumatoid arthritis: Status: Chronic Qualifiers: Rheumatoid arthritis location: multiple sites Rheumatoid factor presence: unspecified presence Qualified Code(s): M06.9 - Rheumatoid arthritis, unspecified (3) Contracture of multiple joints: Status: Acute (4) Asthma: Status: Acute Qualifiers: Asthma severity: unspecified severity Asthma persistence: unspecified Asthma complication type: unspecified Qualified Code(s): J45.909 - Unspecified asthma, uncomplicated (5) Cecal volvulus: Status: Acute (6) Large hiatal hernia: Status: Chronic (7) Protein calorie malnutrition: Status: Chronic Qualifiers: Protein-calorie malnutrition severity: unspecified severity Qualified Code(s): E46 - Unspecified protein-calorie malnutrition (8) Parkinson disease: Status: Chronic (9) Does not walk: Status: Chronic Additional A&P Information Postop day 3 We will advance her diet to GI soft, milk of magnesia given Patient is endorsing passing flatus, will give her glycerin suppository Patient is noticing that her bowel movement is once a week if she is tolerating diet and general surgery okay we will discharge her back to the facility tomorrow Turn of fluids Hypocalcemia: Repleted Hypomagnesemia: Repleted Hypokalemia: Repleted Dietary consult for protein calorie malnourishment BMI 16.4 Full code DVT prophylaxis Lovenox Attestations Medical Necessity Statement*: Anticipating discharge back to facility tomorrow Time Spent in Patient Care: less than 15 minutes Coding Level of Care Code Acute Soft Work Wrapper Examiner for [facility] Fwd Diagnoses Status post partial resection of colon Z90.49 Rheumatoid arthritis M06.9 Rheumatoid arthritis location: multiple sites Rheumatoid factor presence: unspecified presence Contracture of multiple joints M24.50 Asthma J45.909 Asthma severity: unspecified severity Asthma persistence: unspecified Asthma complication type: unspecified Cecal volvulus K56.2 Large hiatal hernia K44.9 Protein calorie malnutrition E46 Protein-calorie malnutrition severity: unspecified severity Parkinson disease G20 Does not walk R68.89
[2021-03-13] MEDS: potassium chloride ER 20 mEq Tablet 40 MEQ PO (17:08)
[2021-03-14] VITALS (7 sets, daily range): BP systolic 111–122; BP diastolic 73–81; PULSE 89–109; RESP 16–24; TEMP 36.6–36.7; O2SAT 93–98
[2021-03-14 02:51] LABS: Anion Gap 13.8 (5-19); Blood Urea Nitrogen 5 mg/dL (8-23); Calcium 7.5 mg/dL (8.5-10.5); Carbon Dioxide 23 mmol/L (22-29); Chloride 103 mmol/L (98-107); Glomerular Filtration Rate 352.2 mL/min (90-130); Glucose 92 mg/dL (65-115); Magnesium 1.9 mg/dL (1.7-2.3); Osmolality Calculated 279 mOsm/kg (285-295); Potassium 3.8 mmol/L (3.5-5.1); Sodium 136 mmol/L (136-145)
[2021-03-14] MEDS: ondansetron 2 mg/ML SDV 2 mL 4 MG IVP (03:18)
[2021-03-14] MEDS: LORazepam 2 mg/mL INJ 1 mL 0.5 MG IVP (03:18)
[2021-03-14] MEDS: ipratropium-albuterol 3 mL Neb INHALATION ×2 (04:06→10:08)
[2021-03-14] MEDS: enoxaparin 40 mg/0.4 mL Syringe SUBCUT (06:48)
[2021-03-14] MEDS: magnesium oxide 400 mg tablet PO (08:28)
[2021-03-14] MEDS: acetaminophen 500 mg Tablet PO ×2 (08:28→15:07)
--- NOTE | 2021-03-14 11:09 | P.DS_ITS ---
Discharge Providers Date of Admission: 03/10/21 08:38 Date of Discharge: March 14, 2021 Attending Provider at Admission: Antwan Clancy DO Attending Provider at Discharge: Valorie Barragan MD Diagnoses at Discharge Discharge Diagnosis (1) Status post partial resection of colon: Status: Acute (2) Rheumatoid arthritis: Status: Chronic Permanent problem details: no current treatment beyond pain control and intermittent steroids Qualifiers: Rheumatoid arthritis location: multiple sites Rheumatoid factor presence: unspecified presence Qualified Code(s): M06.9 - Rheumatoid arthritis, unspecified (3) Contracture of multiple joints: Status: Acute (4) Asthma: Status: Acute Qualifiers: Asthma severity: unspecified severity Asthma persistence: unspecified Asthma complication type: unspecified Qualified Code(s): J45.909 - Unspecified asthma, uncomplicated (5) Cecal volvulus: Status: Acute (6) Large hiatal hernia: Status: Chronic (7) Protein calorie malnutrition: Status: Chronic Qualifiers: Protein-calorie malnutrition severity: unspecified severity Qualified Code(s): E46 - Unspecified protein-calorie malnutrition (8) Parkinson disease: Status: Chronic (9) Does not walk: Status: Chronic Reason for Visit Reason for Visit: GI BLEED Hospital Course Hospital Course HPI as per Dr. Yanique Alberto Vipul is a 70 year old female sent from [facility] because of report of coffee-ground emesis. She had had episodes of coffee- ground emesis earlier this year and was found to have gastritis. She had iron deficiency anemia associated with GI blood losses. Never required transfusion. She had been doing well from a GI standpoint from what she can tell me until recently when she started having abdominal discomfort and decreased oral intake. She has had some vomiting today of black tarry coffee-ground appearance. Difficult to get details of the pain she has been having in her abdomen but it is significant on examination. Unclear when she had her last bowel movement, at least more than a week ago if not longer. The only medication she received yesterday at [facility] was suppository, I am assuming for constipation and Zofran. She did not receive any of her other medications or have oral intake. No oral intake today. Work-up in the emergency room showed hemoglobin of 12.6 which is quite good for her. Work-up also included CT imaging of the abdomen that revealed a large cecal volvulus. Case was discussed with surgery who plans to take Mrs. Matthew for emergent surgery. Likely will have an ostomy postop. Consent was obtained from the patient's daughter whom Dr. Clancy spoke to on the phone. Given patient's comorbid conditions, she is being admitted to hospitalist service with surgical consultation. She denied any chest pain. No new respiratory symptoms. She had Covid in April of last year. She had routine testing at [facility] and had antigen testing that was negative on February 28. She has no known history of anesthesia problems. Prior episodes of bleeding were associated with anticoagulation. Anticoagulation was previously for DVT. She does have some chronic respiratory problems. No history of coronary artery disease. Records indicate a history of rheumatoid arthritis and Parkinson's disease. She has a large hiatal hernia. She is chronically on Depakote because of a history of francia/mood disorder but has not had it for at least a day or 2. Review of current labs, EKG that actually is more consistent with her parkinsonian tremor than cardiac rhythm as well as x-rays/CT reviewed. No contraindication to proceeding to urgent surgery. Hospital course Patient was admitted for management of large cecal volvulus, status post exploratory laparotomy partial colectomy, no signs of necrosis or gangrene were noted, she is being discharged on postop day 4, postoperative period was unremarkable. Her hypocalcemia, hypomagnesemia and hypokalemia electrolytes were replenished. She had a bowel movement on 03/13/2021. She tolerated her GI soft diet.. Patient did complain of abdominal pain postoperatively for which CT abdomen pelvis was requested with IV contrast, it showed postoperative changes no acute pathological findings were noted. Patient's mentation remained at her baseline, she is able to conversation appropriately, make her needs known. Lee catheter will be removed before discharge, she has put out good amount of urine, creatinine stayed normal. She remained afebrile did not require any blood transfusion postoperatively. Daughter updated Physical Exam Narrative: EXAM NARRATIVE: Patient left lateral position EOMI, PERRLA Multiple contractures of joints No new neurological deficit S1, S2 no signs of heart failure Abdomen soft mildly tender around surgical site, truman and wound appears healthy with good granulation tissue Lee catheter draining concentrated urine Diminished bilateral breath sounds Urinary Catheter Management^: Lee: Cath Placed During This Visit: yes Reason for Continuing Indwelling Catheter: Acute Urinary Retention or Obstruction Urinary Catheter Date of Insertion: 03/10/21 Urinary Catheter Time of Insertion: 05:07 Discharge Data Data Completed and Pending: Completed Studies During Hospitalization Category Date Time Status CT abdomen pelvis w con* [id number] Stat Cat Scan 03/12/21 09:[address] abdomen pelvis w con* [id number] Urge nt Cat Scan 03/10/21 02:06 Completed XR chest 1V sammie ble [id number] Stat Exams 03/10/21 04:22 Completed Pending at discharge Category Date Time Status Blood Culture Sta t Lab 03/10/21 05:42 Results Pathology: Surgic al [PTH] Routine Pth 03/10/21 08:52 Received Labs from last 24 hours 03/14/21 02:05 Sodium 136 Potassium 3.8 Chloride 103 Carbon Dioxide 23 Anion Gap 13.8 BUN 5 L Creatinine 0.2 L GFR Calculation 352.2 H Glucose 92 Calculated Osmolal ity 279 L Calcium 7.5 L Magnesium 1.9 Vitals: Last Vital Signs Temp 98.0 F 03/14/21 10:45 Pulse 109 H 03/14/21 10:45 Resp 18 03/14/21 10:45 BP 111/77 03/14/21 10:45 Pulse Ox 96 03/14/21 10:45 Discharge Plan Discharge Patient Disposition: Xfer SNF Condition: Stable Prescriptions: New potassium chloride 10 mEq capsule, extended release 10 meq PO DAILY 3 Days Qty: 3 RF: 0 Continued divalproex 500 mg tablet,delayed release (DR/EC) 500 mg PO BID@ RF: 0 multivitamin with iron Tablet 1 tab PO DAILY@08 RF: 0 pantoprazole [Protonix] 40 mg tablet,delayed release (DR/EC) 40 mg PO BID@, RF: 0 acetaminophen [Tylenol Arthritis Pain] 650 mg Tablet Extended Release 650 mg PO DAILY PRN (Reason: Pain) RF: 0 montelukast [Singulair] 10 mg Tablet 10 mg PO DAILY@20 RF: 0 cholecalciferol (vitamin D3) [Vitamin D3] 1,000 unit Capsule 1,000 unit PO DAILY@08 RF: 0 Combivent Respimat 20-100 mcg/actuation Mist 1 puff INHALATION QID RF: 0 ondansetron HCl 4 mg tablet 4 mg PO Q4H PRN (Reason: NAUSEA/VOMITING) RF: 0 ipratropium-albuterol 0.5 mg-3 mg(2.5 mg base)/3 mL Solution For Nebulization 3 ml INHALATION TID@,, RF: 0 albuterol sulfate 2.5 mg /3 mL (0.083 %) Solution For Nebulization 2.5 mg INHALATION Q4H PRN (Reason: Shortness Of Breath) RF: 0 sennosides-docusate sodium [Senna-S] 8.6-50 mg Tablet 1 tab-cap PO BID PRN (Reason: Constipation) RF: 0 tramadol 50 mg Tablet 50 mg PO TID@,,20 RF: 0 magnesium hydroxide [Milk of Magnesia] 400 mg/5 mL Suspension 30 ml PO DAILY PRN (Reason: Constipation) RF: 0 bisacodyl 10 mg Suppository 10 mg VT DAILY PRN (Reason: Constipation) RF: 0 Enema Disposable 19-7 gram/118 mL Enema 118 ml VT DAILY PRN (Reason: Constipation) RF: 0 polyethylene glycol 3350 [Miralax] 17 gram/dose Powder 17 g PO DAILY@08 RF: 0 bupropion HCl 150 mg Tablet Extended Release 24 Hr 150 mg PO DAILY@08 RF: 0 TwoCal HN 0.08-2 gram-kcal/mL Liquid 30 ea PO TID@,, RF: 0 guaifenesin [Mucinex] 600 mg Tablet Extended Release 12hr 600 mg PO Q12H PRN (Reason: Nasal Congestion) RF: 0 carbidopa-levodopa 25-100 mg tablet extended release 1 tab PO BID@, RF: 0 acetaminophen 325 mg Tablet 325 mg PO Q6H PRN (Reason: Pain or fever) RF: 0 fluticasone propionate 50 mcg/actuation spray,suspension 2 spray INTRANASAL DAILY RF: 0 Zofran ODT 4 mg PO Q4H PRN (Reason: Nausea And Vomiting) RF: 0 Discharge Orders: Discharge Order (Routine); Ordered 03/14/21 Ordered By: Valorie Barragan Discharge Diet: GI Soft Discharge Activity: Bedrest and As per PT/OT instructions Patient Instructions: Potassium Chloride (By mouth) Discharge Attestations Time Spent in Discharge Care*: less than 30 min Status at Discharge: Cognitive status at discharge: cognitively intact , Behavioral status at discharge: cooperative , Quality Metrics Clinical Quality Measures During this hospital stay, did patient experience: None Coding Level of Care Code Acute Chg FW DC note Diagnoses Status post partial resection of colon Z90.49 Rheumatoid arthritis M06.9 Rheumatoid arthritis location: multiple sites Rheumatoid factor presence: unspecified presence Contracture of multiple joints M24.50 Asthma J45.909 Asthma severity: unspecified severity Asthma persistence: unspecified Asthma complication type: unspecified Cecal volvulus K56.2 Large hiatal hernia K44.9 Protein calorie malnutrition E46 Protein-calorie malnutrition severity: unspecified severity Parkinson disease G20 Does not walk R68.89
--- NOTE | 2021-03-14 11:52 | PC.NURSE ---
Report called to Amira at [facility].
--- NOTE | 2021-03-28 11:34 | PC.SOCIAL ---
Amira, RN from [facility] called questioning when sutures need to be removed and when patient needs to follow up after having colectomy. selling underwriter looked into chart, no notes for when patient needs to follow up or have sutures removed. I called Dr. Nolen's office, because surgery was performed by , a locum. Spoke with the nurse at Dr. Nolen's office and she reports pt will need to follow up with Dr. Nolen this next week in office and sutures need to be removed today. Funeral Counselor called back and spoke with Amira at [facility] and gave her this info.
== END 2021-03-14 16:03 | disposition skilled nursing facility (03) | DRG 330 ==
LOC: ER 05:40 → OR 06:46 → ER 08:38 → ICU 08:39 → MEDSURG 03-11 13:30
PROVIDERS: Hospitalist; Admitting Provider Anesthesiology Critical Care Medicine; Emergency Provider Emergency Medicine; Visit Provider Internal Medicine
PROC: 0DTH0ZZ Resection of Cecum, Open Approach (ICD-10-PCS; CPT 49000; principal; 2021-03-10 11:00)
DX: K56.2 Volvulus (principal); F02.81 Dementia in other diseases classified elsewhere, unspecified severity, with behavioral disturbance; F33.9 Major depressive disorder, recurrent, unspecified; E46 Unspecified protein-calorie malnutrition; Z68.1 Body mass index [BMI] 19.9 or less, adult; F41.9 Anxiety disorder, unspecified; J45.909 Unspecified asthma, uncomplicated; G20 Parkinson's disease; K21.9 Gastro-esophageal reflux disease without esophagitis; Z86.16 Personal history of COVID-19; Z86.718 Personal history of other venous thrombosis and embolism; E78.5 Hyperlipidemia, unspecified; I10 Essential (primary) hypertension; D50.9 Iron deficiency anemia, unspecified; M81.0 Age-related osteoporosis without current pathological fracture; M06.9 Rheumatoid arthritis, unspecified; K44.9 Diaphragmatic hernia without obstruction or gangrene; M24.50 Contracture, unspecified joint; E87.6 Hypokalemia; E83.51 Hypocalcemia; Z79.51 Long term (current) use of inhaled steroids; E83.42 Hypomagnesemia
CPT/HCPCS: 36415; 51702; 71045; 74177; 80048; 80053; 80164; 81001; 83605; 83735; 85025; 85610; 85730; 86140; 86850; 86900; 87040; 87086; 88309; 93005; 94640; 96365; 96372; 96375; 99285; C9113; J0330; J0610; J1100; J1170; J1200; J1650; J1980; J2060; J2370; J2405; J2543; J2704; J3010; J3475; J3490; J7030; Q9967

== ENCOUNTER 2021-05-16 11:11 | Emergency (ER) | payer OTHER, MEDICARE, MEDICAID, SELFPAY ==
[2021-05-16] VITALS (13 sets, daily range): BP systolic 108–126; BP diastolic 88–106; PULSE 106–123; RESP 18–24; TEMP 35.4–36.7; O2SAT 86–96; BMI 14.2
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
--- NOTE | 2021-05-16 11:24 | XR_ITS ---
WS: [id number] PORTABLE CHEST HISTORY: wheezing COMPARISON: 03/10/2021 Patient has a known large hiatal hernia which has been previously described by CT evaluation. Loops o f the GI tract extend into the lower thorax. There is marked air distention of this herniation on tod ay's radiograph. Lungs are being compressed by the large intrathoracic herniation. No pneumonia. No pleural effusion o r pneumothorax. Cardiac size: Obscured by the large hernia centrally. Mediastinum/Aorta: Mild atherosclerosis aorta. Osteopenia. XR/XR chest 1V portable [id number] IMPRESSION: 1. Patient has a large none hiatal hernia containing loops of GI tract. 2. Partial compression of the lungs due to the large hernia. No pneumonia.
--- NOTE | 2021-05-16 11:24 | CT_ITS ---
WS: [id number] CT CHEST, ABDOMEN AND PELVIS WITH CONTRAST. HISTORY: abdominal and back pain TECHNIQUE: Contiguous 5 mm axial imaging performed through the chest, abdomen and pelvis with IV cont rast, oral contrast has not been provided. Coronal and sagittal reformats chest. Coronal and sagittal reformats through the abdomen and pelvis. All CT scans at [facility] use at least one of the se dose optimization techniques: automated exposure control; mA and/or kV adjustment per patient size (includes targeted exams where dose is matched to clinical indication); or iterative reconstruction. CONTRAST: Omnipaque 350; 95 mL IV. DLP: 1026.58 mGy.cm COMPARISON: 03/12/[address]: There is marked fluid distention within the esophagus. There is also some debris within the esophagus. There is marked dilatation of the intrathoracic stomach. Due to the marked fluid and air distention suspicious for twisting and torsion and possible outlet obstruction. Significant progressi on of the dilatation since the prior study. Partial atelectasis of the lungs at the bases from the la rge hiatal hernia. There are a few scattered opacifications and groundglass attenuation in the RIGHT lung. Moderate atherosclerosis aorta. Heart is being compressed by the large intrathoracic dilated st omach and possible small bowel loops. Abdomen CT: Visualized liver, spleen and atrophied pancreas are unchanged. Neither adrenal gland is w ell seen. Atherosclerosis aorta. Kidneys are normally enhancing. Gallbladder is present and contains numerous stones. There is severe small bowel dilatation with fluid. Site of the obstruction is not apparent. There is a row of surgical sutures in the RIGHT abdomen which is probably a normal rise air volvulus repair. S mall amount of free fluid in the abdomen and pelvis. No free air is identified. Pelvic CT: Nondistended urinary bladder. There is a Lee catheter present. There is a small amount o f free fluid in the pelvis. Increase in thoracic kyphosis. There is diffuse osteopenia. Very mild compression deformity superior endplate of L5. CT/CT chest abd pel w con* IMPRESSION: 1. Quality of this examination is limited by patient's condition and breathing artifact. 2. Large incarcerated hiatal hernia and possible associated small bowel loops. Suspect volvulus causing outlet obstruction from the stomach. There is associa speedy marked fluid distention of the esophagus also. 3. High-grade proximal small bowel obstruction with no transition point identi fied. 4. Small amount of free fluid. 5. No free air at this time. 6. Cholelithiasis. 7. Large incarcerated hiatal hernia is causing compression upon the posterior heart.
--- NOTE | 2021-05-16 11:24 | CT_ITS ---
WS: [id number] CT CERVICAL SPINE HISTORY: fall TECHNIQUE: Contiguous 2.5 mm axial imaging performed through the entire cervical spine. Sagittal and coronal reformats also performed. All CT scans at [facility] use at least one of these dose o ptimization techniques: automated exposure control; mA and/or kV adjustment per patient size (include s targeted exams where dose is matched to clinical indication); or iterative reconstruction. DLP: 297.05 mGy.cm COMPARISON: None available. Mild straightening and scoliosis cervical spine. Craniocervical junction is normally aligned. Narrowi ng of the predental space. Lateral masses of C1 and C2 are aligned. There is marked narrowing of the facet joints. Facet joint arthritis at all levels. No fractures within the vertebral bodies or aboriginal home school liaison officer ior elements. Vertebral body osteophytes and severe facet joint arthritis contributing to various lev els of central and foraminal stenosis throughout the cervical spine. Lung apices are clear. There is a large amount of debris within the upper thoracic esophagus above th e level of the tricia. CT/CT cervical spin wo con* [id number] IMPRESSION: 1. No acute cervical spine fracture. 2. Advanced degenerative changes throughout the cervical spine with variable l evels of central and foraminal stenosis. 3. Dilated upper thoracic esophagus with debris. Patient is at risk for aspira tion.
--- NOTE | 2021-05-16 11:24 | CT_ITS ---
WS: [id number] CT HEAD NONCONTRAST HISTORY: fall TECHNIQUE: Contiguous axial imaging performed through the brain in 2.5 mm imaging. Bone and soft tiss ue windows. Sagittal and coronal reformats reviewed. All CT scans at [facility] use at least one of these dose optimization techniques: automated exposure control; mA and/or kV adjustment per pa tient size (includes targeted exams where dose is matched to clinical indication); or iterative recon struction. DLP: 910.93 mGy.cm COMPARISON: None available. No acute intracranial hemorrhage, midline shift or mass effect. Mild atrophy and mild chronic microvascular ischemic disease. Small lacunar infarct with calcificatio n in the LEFT youngblood radiata. Ventricles: Ventricles are mildly prominent on the basis of atrophy. No inferior displacement of cerebellar tonsils. Paranasal sinuses: As visualized are clear. Mastoid air cells: Well pneumatized. Calvarium and scalp: Calcified scalp nodule towards the RIGHT frontal vertex. No fracture or scalp he matoma. CT/CT head wo con* [id number] IMPRESSION: 1. No acute intracranial hemorrhage or edema. 2. Mild atrophy and chronic ischemic disease. 3. No skull fracture.
[2021-05-16] MEDS: morphine 4 mg/mL SDV 1 mL IVP (12:00)
[2021-05-16] MEDS: sodium chloride 0.9% 1,000 ML 999 ML IV (12:03)
[2021-05-16] MEDS: pantoprazole 40 mg SDV 80 MG IVP (12:04)
--- NOTE | 2021-05-16 12:05 | PC.NURSE ---
Received report from MARISOL Wise. Pt admitted from detention with c/o of vomiting today.
[2021-05-16 12:18] LABS: Basophils # 0.1 10^3/uL (0.0-0.1); Basophils % 0.3 %; Eosinophils # 0.1 10^3/uL (0.0-0.8); Eosinophils % 0.3 %; Hematocrit 50.7 % (37.0-47.0); Hemoglobin 16.4 g/dL (11.5-15.3); Lymphocytes # 1.5 10^3/uL (0.8-4.8); Lymphocytes % 7.1 %; Mean Corpuscular HGB Conc 32.3 g/dL (30.0-36.0); Mean Corpuscular Hemoglobin 29.9 pg (28.0-34.0); Mean Corpuscular Volume 92.3 fl (81-99); Mean Platelet Volume 11.1 fL (7.4-10.4); Monocytes # 0.9 10^3/uL (0.2-0.9); Monocytes % 4.4 %; Neutrophils # 18.56 10^3/uL (1.8-7.7); Neutrophils % 87.2 %; Nucleated Red Blood Cells % 0 %; Platelet Count 384 10^3/cmm (130-400); Red Blood Count 5.49 10^6/uL (4.1-5.3); Red Cell Distribution Width 16.9 % (12.1-15.1); White Blood Count 21.3 10^3/uL (4.0-10.0)
--- NOTE | 2021-05-16 12:25 | PC.NURSE ---
Pt vomiting dark blood appears emesis. Notified provider. Review ST cath order for UA with provider. Order changed to Lee.
[2021-05-16 12:30] LABS: Alanine Aminotransferase 16 U/L (0-33); Albumin Level 4.3 g/dL (3.5-5.2); Alkaline Phosphatase 92 IU/L (35-105); Aspartate Amino Transferase 22 U/L (0-32); Blood Urea Nitrogen 31 mg/dL (8-23); Calcium 10.5 mg/dL (8.5-10.5); Carbon Dioxide 26 mmol/L (22-29); Chloride 98 mmol/L (98-107); Glomerular Filtration Rate 98.8 mL/min (90-130); Glucose 190 mg/dL (65-115); INR 1.02 (0.8-1.2); Lipase 12 U/L (13-60); Osmolality Calculated 298 mOsm/kg (285-295); Sodium 138 mmol/L (136-145); Total Bilirubin 0.3 mg/dL (0.15-1.2); Total Protein 8.3 g/dL (6.6-8.7)
[2021-05-16 12:31] LABS: Troponin(5th) Baseline 16 ng/L (0-10)
[2021-05-16 12:33] LABS: Anion Gap 19.9 (5-19); Potassium 5.9 mmol/L (3.5-5.1)
--- NOTE | 2021-05-16 12:45 | PC.NURSE ---
Provider at bedside. Notified RT of need for RT TX and placement of 0xygen
[2021-05-16 12:51] LABS: Lactate (Lactic Acid level) 3.5 mmol/L (0.5-2.2)
[2021-05-16 13:02] LABS: Bilirubin Urine 1+ (Negative); Blood Urine 3+ (Negative); Glucose Urine UA Norm (Normal); Ketones Urine 1+ (Negative); Nitrate Urine Negative (Negative); Protein Urine 1+ (Negative); Urine Appearance Cloudy (CLEAR); Urine Color Yellow (Yellow); pH Urine 5 (5-7)
[2021-05-16 13:03] LABS: Add Urine Culture? Yes; Add Urine Microscopic? YES; Bacteria Urine 1+ /hpf; Leukocyte Esterase Urine 2+ (Negative); Mucus Urine 3+ /hpf; Urobilinogen Urine 1 mg/dL (Negative); WBC Urine 15-25 /hpf (0-5)
[2021-05-16] MEDS: iohexol 350 mg/mL 100 mL Btl IV (13:11)
--- NOTE | 2021-05-16 13:26 | ECG_ITS ---
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 Measurements Intervals [place] Rate: 112 P: 51 TX: 128 QRS: 239 QRSD: 92 T: 51 QT: 327 QTc: 447 Interpretive Statements SINUS TACHYCARDIA POSSIBLE RIGHT ATRIAL ENLARGEMENT [0.25mV P-WAVE] LEFT ATRIAL ENLARGEMENT [-0.15mV P-WAVE IN V1/V2] RIGHT AXIS DEVIATION [QRS AXIS > 100] INFERIOR MYOCARDIAL INFARCTION , PROBABLY OLD [40+ ms Q WAVE AND/OR ST/T ABNORMALITY IN II/aVF] ANTEROLATERAL MYOCARDIAL INFARCTION , PROBABLY OLD [40+ ms Q WAVE IN I/aVL/V3-V6] Compared to ECG 03/10/2021 04:50:37 Atrial abnormality now present Myocardial infarct finding now present Electronically Signed On 05-16-2021 22:56:05 LOGISTICS TECHNICIAN by Ene Duffy M.D. [id number]
[2021-05-16] MEDS: ipratropium-albuterol 3 mL Neb INHALATION (13:30)
--- NOTE | 2021-05-16 14:25 | PC.NURSE ---
3 failed attempts to start NG tube, initially unable to place 16Fr sal[place] sump d/t narrow nasal passageway. 2 attempts with 14Fr [place] sump, one in each nostril. Her nasal passages are too narrow to pass the tube and patient couldn't tolerate. Dr. Carvajal notified.
[2021-05-16 15:03] LABS: Troponin 5 2HR 13.59 ng/L (0-10)
[2021-05-16 15:04] LABS: Lactate (Lactic Acid level) 2.8 mmol/L (0.5-2.2)
[2021-05-16] MEDS: piperacillin-tazobactam 4.5 GM in sodium chloride 0.9% (plus) 50 ML IV (15:04)
[2021-05-16 15:07] LABS: Troponin 5 2HR Delta -2.41 ABS# (0-10)
--- NOTE | 2021-05-17 08:02 | PC.SOCIAL ---
Talked with daughter who indicates that she stayed with Mom last night in [place] and patient refused NG tube. They are not planning on doing anything invasive. FAmily will be discussing goals of care. Daughter indicates would like to get her back locally if family agrees. Advised them to discuss and this may be something that can be discussed with care providers there if family in agreement.
== END 2021-05-16 15:29 ==
PROVIDERS: Emergency Provider Emergency Medicine; PCP Family Medicine
DX: R10.9 Unspecified abdominal pain (principal); Z79.82 Long term (current) use of aspirin; J44.9 Chronic obstructive pulmonary disease, unspecified; E78.5 Hyperlipidemia, unspecified; G20 Parkinson's disease; F02.80 Dementia in other diseases classified elsewhere, unspecified severity, without behavioral disturbance, psychotic disturbance, mood disturbance, and anxiety; I10 Essential (primary) hypertension; Z90.49 Acquired absence of other specified parts of digestive tract
CPT/HCPCS: 36415; 51702; 70450; 71045; 71260; 72125; 74160; 74177; 80053; 81001; 83605; 83690; 84484; 85025; 85610; 87040; 87086; 93005; 94640; 96361; 96365; 96375; 99285; 99291; C9113; J2270; J2543; J7030; Q9967